=== PATIENT | male | born 1955 | race Caucasian/White ===

== ENCOUNTER 2020-03-04 17:03 | Outpatient (REF) | payer OTHER, SELFPAY | END 2020-03-04 17:04 | disposition home or self-care (01) | LOC: HO.LAB 17:03 | PROVIDERS: PCP Internal Medicine; Visit Provider Internal Medicine | DX: Z20.828 Contact with and (suspected) exposure to other viral communicable diseases (principal) | CPT/HCPCS: C9803; U0003 ==

== ENCOUNTER 2020-04-02 07:58 | Outpatient (REF) | payer OTHER, SELFPAY ==
--- NOTE | 2020-04-02 08:03 | MM_ITS ---
EXAMINATION: BONE DENSITOMETRY CLINICAL INDICATION: Other specified disorders of bone density and structure. COMPARISON: Previous BD dated 10/06/2015 and baseline BD dated 09/12/2013. TECHNIQUE: Using a AFrame Digital DXA System (software version: 13.1) manufactured by [employer], dual-energy x-ray absorptiometry was performed of the lumbar spine and right hip. The images are of good technical quality. Summary results are attached. FINDINGS: AP SPINE L1-L3 (excluding L4): The data of L1-L4 has been changed to exclude the L4 vertebral body, because degenerative changes at this level may cause overestimation of lumbar spine density. Current: BMD 1.215 g/cm2, Z-score -0.3, T-score 0.0, normal, 7.5% increase from previous, 9.0% increase from baseline (<5% change is not significant). Prior: BMD 1.130 g/cm2. Baseline: BMD 1.115 g/cm2. RIGHT FEMUR, NECK: Current: BMD 0.825 g/cm2, Z-score -1.4, T-score -1.9, osteopenia. Prior: BMD 0.871 g/cm2. Baseline: BMD 0.862 g/cm2. RIGHT FEMUR, TOTAL: Current: BMD 0.914 g/cm2, Z-score -1.2, T-score -1.3, osteopenia, 1.3% decrease from previous, 1.9% increase from baseline (<5% change is not significant). Prior: BMD 0.926 g/cm2. Baseline: BMD 0.897 g/cm2. IDENTIFIED RISK FACTORS: History of fracture (adult). HISTORY OF FRACTURE: Femur. MEDICATIONS: None listed. MM/XR DEXA axial skeleton IMPRESSION: 1. DIAGNOSIS: Osteopenia based on the lowest T-score value of -1.9 in the femoral neck applying World Health Organization criteria. 2. 10-YEAR FRACTURE RISK PREDICTION, FRAX: Major osteoporotic fracture (clinical spine, forearm, hip or shoulder) 10.8%. Hip fracture 1.8%. 3. Treatment Recommendations: NOF guidelines recommend consideration for treatment in postmenopausal women and men age 50 and older presenting with the following: -A hip or vertebral (clinical or morphometric) fracture. -T-score less than or equal to -2.5 at the femoral neck or spine after appropriate evaluation to exclude secondary causes. -Low bone mass at the hip or spine and a 10-year fracture probability by FRAX of greater than or equal to 3% for hip fracture or greater than or equal to 20% for major osteoporotic fracture based on the [place] adapted WHO algorithm. 4. Other Recommendations: All treatment decisions require clinical judgment and consideration of individual patient factors, including patient preferences, comorbidities, previous drug use, risk factors not captured in the FRAX model (e.g. frailty, falls, vitamin D deficiency, increased bone turnover, interval significant decline in bone density) and possible under or overestimation of fracture risk by FRAX. Additional medical evaluation for secondary cause of low bone mineral density may be appropriate. FUTURE SCAN RECOMMENDATION: People with diagnosed cases of osteoporosis or at high risk for fracture should have regular bone mineral density tests. For patients eligible for Medicare, routine testing is allowed once every 2 years. The testing frequency can be increased to one year for patients who have rapidly progressing disease, those who are receiving or discontinuing medical therapy to restore bone mass, or have additional risk factors.
== END 2020-04-02 07:59 | disposition home or self-care (01) ==
LOC: HO.MAMMO 07:58
PROVIDERS: PCP Internal Medicine; Visit Provider Internal Medicine
DX: M85.88 Other specified disorders of bone density and structure, other site (principal)
CPT/HCPCS: 77080

== ENCOUNTER 2021-03-15 10:20 | Outpatient (REF) | payer OTHER, SELFPAY ==
[2021-03-15 10:25] LABS: MANUAL DIFF FLAG NO
[2021-03-15 11:23] LABS: Basophils Percent Auto 0.3 % (0-2); Eosinophils Absolute Auto 0.1 X10*3/uL (0.0-0.4); Eosinophils Percent Auto 1.2 % (0-4); Hematocrit 45.6 % (42.0-52.0); Hemoglobin 15.1 g/dl (14.0-18.0); Imm Gran Abs Auto 0.02 X10*3/uL (0.00-0.03); Imm Gran Pct Auto 0.3 % (0.0-0.4); Lymphocytes Absolute Auto 1.7 X10*3/uL (1.2-4.9); Lymphocytes Percent Auto 30.3 % (20-40); Mean Corpuscular HGB Conc 33.1 g/dl (31.0-36.0); Mean Corpuscular Hemoglobin 30.6 pg (27.0-33.0); Mean Corpuscular Volume 92.5 fL (80.0-98.0); Mean Platelet Volume 9.6 fL (9.4-12.4); Monocytes Absolute Auto 0.5 X10*3/uL (0.1-1.2); Monocytes Percent Auto 8.7 % (2-11); Neutrophils Absolute Auto 3.4 x10*3/uL (2.0-8.3); Neutrophils Percent Auto 59.2 % (45-73); Platelet Count 255 X10*3/uL (160-400); Red Blood Count 4.93 X10*6/uL (4.60-5.80); Red Cell Distribution Width 12.4 % (11.0-16.0); White Blood Count 5.7 X10*3/uL (4.8-10.8)
[2021-03-15 11:26] LABS: Appearance Urine CLEAR; Color Urine YELLOW; Glucose Urine UA NEG (NEG); Leukocyte Esterase Urine NEG (NEG); Nitrite Urine NEG (NEG); Specific Gravity - Urine 1.025 (1.005-1.025); Urine Blood NEG (NEG); Urine Ketones NEG (NEG); Urine Protein NEG (NEG-TRACE)
[2021-03-15 11:43] LABS: Alanine Aminotransferase 22 U/L (0-40); Alkaline Phosphatase 75 U/L (39-117); Anion Gap 13 (12-20); Aspartate Amino Transferase 20 U/L (5-37); Bilirubin Total 0.5 mg/dL (0.0-1.0); Blood Urea Nitrogen 22 mg/dL (9-16); Calcium 8.8 mg/dL (8.4-10.2); Carbon Dioxide 26 mmol/L (22-29); Chloride 106 mmol/L (96-108); Cholesterol 189 mg/dL; Estimated Average Glucose 105 mg/dL; Estimated Glomerular Filt Rate > 60; Glucose Fasting 102 mg/dL (60-99); HDL Cholesterol 46 mg/dL; Hemoglobin A1c % 5.3 %; LDL Cholesterol Calculated 125 mg/dl; Potassium 4.4 mmol/L (3.3-5.1); Sodium 141 mmol/L (135-145); Total Protein 6.7 g/dL (6.5-8.0); Triglycerides 93 mg/dL
[2021-03-15 11:54] LABS: Reflex LDLD? No
[2021-03-15 12:05] LABS: PSA,Total (Free>4and<10) 3.38 ng/mL (0.00-4.00)
[2021-03-15 12:42] LABS: Creatinine Urine 110.67 mg/dL; Microalbumin Urine < 5.0 mg/L
== END 2021-03-15 10:21 | disposition home or self-care (01) ==
LOC: HO.LNP 10:20
PROVIDERS: Visit Provider Internal Medicine
DX: Z00.00 Encounter for general adult medical examination without abnormal findings (principal); Z12.5 Encounter for screening for malignant neoplasm of prostate; R97.20 Elevated prostate specific antigen [PSA]; R73.03 Prediabetes; E78.6 Lipoprotein deficiency
CPT/HCPCS: 80053; 80061; 81003; 82043; 83036; 84153; 85025

== ENCOUNTER 2021-05-21 10:21 | Outpatient (REF) | payer OTHER, SELFPAY ==
[2021-05-21 11:19] LABS: Blood Urea Nitrogen 18 mg/dL (9-16)
== END 2021-05-21 10:22 | disposition home or self-care (01) ==
LOC: HO.LNP 10:21
PROVIDERS: Visit Provider Internal Medicine
DX: R79.9 Abnormal finding of blood chemistry, unspecified (principal)
CPT/HCPCS: 84520

== ENCOUNTER 2021-09-16 11:15 | Outpatient (REF) | payer OTHER, SELFPAY ==
[2021-09-16 12:15] LABS: PSA,Total (Free>4and<10) 3.21 ng/mL (0.00-4.00)
== END 2021-09-16 11:16 | disposition home or self-care (01) ==
LOC: HO.LNP 11:15
PROVIDERS: PCP Internal Medicine; Visit Provider Internal Medicine
DX: Z12.5 Encounter for screening for malignant neoplasm of prostate (principal); R97.20 Elevated prostate specific antigen [PSA]
CPT/HCPCS: 84153

== ENCOUNTER 2022-03-22 11:59 | Outpatient (REF) | payer OTHER, SELFPAY ==
[2022-03-22 12:04] LABS: MANUAL DIFF FLAG NO
[2022-03-22 12:23] LABS: Basophils Percent Auto 0.6 % (0-2); Eosinophils Absolute Auto 0.1 X10*3/uL (0.0-0.4); Eosinophils Percent Auto 1.3 % (0-4); Hemoglobin 14.8 g/dl (14.0-18.0); Imm Gran Abs Auto 0.02 X10*3/uL (0.00-0.03); Imm Gran Pct Auto 0.3 % (0.0-0.4); Lymphocytes Absolute Auto 2.2 X10*3/uL (1.2-4.9); Lymphocytes Percent Auto 32.5 % (20-40); Mean Corpuscular HGB Conc 32.9 g/dl (31.0-36.0); Mean Corpuscular Hemoglobin 30.3 pg (27.0-33.0); Mean Platelet Volume 9.9 fL (9.4-12.4); Monocytes Absolute Auto 0.7 X10*3/uL (0.1-1.2); Monocytes Percent Auto 9.7 % (2-11); Neutrophils Absolute Auto 3.8 x10*3/uL (2.0-8.3); Neutrophils Percent Auto 55.6 % (45-73); Platelet Count 298 X10*3/uL (160-400); Red Blood Count 4.89 X10*6/uL (4.60-5.80); White Blood Count 6.8 X10*3/uL (4.8-10.8)
[2022-03-22 12:31] LABS: Estimated Average Glucose 111 mg/dL; Hemoglobin A1c % 5.5 %
[2022-03-22 12:39] LABS: Alanine Aminotransferase 21 U/L (0-40); Albumin Level 4.1 g/dL (3.5-5.0); Alkaline Phosphatase 72 U/L (39-117); Anion Gap 13 (12-20); Aspartate Amino Transferase 18 U/L (5-37); Bilirubin Total 0.4 mg/dL (0.0-1.0); Blood Urea Nitrogen 16 mg/dL (9-16); Carbon Dioxide 28 mmol/L (22-29); Chloride 104 mmol/L (96-108); Cholesterol 209 mg/dL; Estimated Glomerular Filt Rate > 60; Glucose Fasting 93 mg/dL (60-99); HDL Cholesterol 41 mg/dL; LDL Cholesterol Calculated 135 mg/dl; Potassium 4.3 mmol/L (3.3-5.1); Sodium 141 mmol/L (135-145); Total Protein 6.9 g/dL (6.5-8.0); Triglycerides 167 mg/dL
[2022-03-22 12:40] LABS: Appearance Urine Clear; Color Urine Yellow; Glucose Urine UA Negative (Negative); Leukocyte Esterase Urine Negative (Negative); Nitrite Urine Negative (Negative); Urine Blood Negative (Negative); Urine Ketones Negative (Negative); Urine Protein Negative (Neg-Trace)
[2022-03-22 12:44] LABS: Bacteria Urine None Seen (None Seen); Hyaline Casts Urine 0-2 /LPF (0-2); RBC Urine 0-2 /HPF (0-2); Squamous Epithelial Cell Urine 0-2 /HPF (0-2); WBC Urine 0-5 /HPF (0-5)
[2022-03-22 12:52] LABS: Creatinine Urine 146.85 mg/dL; Microalbum/Creatinine Ratio Ur 3.4 ug/mg cr
[2022-03-22 13:04] LABS: PSA,Total (Free>4and<10) 4.05 ng/mL (0.00-4.00)
[2022-03-25 10:31] LABS: Free Prostate Spec Ag 0.6 ng/mL; Percent Free Prostate Spec Ag 14 % (calc) (>25); Prostate Specific Ag Total 4.3 ng/mL (< OR = 4.0)
== END 2022-03-22 12:00 | disposition home or self-care (01) ==
LOC: HO.LNP 11:59
PROVIDERS: Visit Provider Internal Medicine
DX: Z00.00 Encounter for general adult medical examination without abnormal findings (principal); Z12.5 Encounter for screening for malignant neoplasm of prostate; E78.6 Lipoprotein deficiency; R73.03 Prediabetes
CPT/HCPCS: 80053; 80061; 81001; 82043; 83036; 84153; 84154; 85025

== ENCOUNTER 2023-03-27 11:08 | Outpatient (REF) | payer OTHER, SELFPAY ==
[2023-03-27 11:11] LABS: MANUAL DIFF FLAG NO
[2023-03-27 11:31] LABS: Appearance Urine Clear; Color Urine Yellow; Glucose Urine UA Negative (Negative); Leukocyte Esterase Urine Negative (Negative); Nitrite Urine Negative (Negative); PH 5.5 (5.0-9.0); Urine Blood Negative (Negative); Urine Ketones Negative (Negative); Urine Protein Negative (Neg-Trace)
[2023-03-27 11:39] LABS: Basophils Percent Auto 0.7 % (0-2); Eosinophils Absolute Auto 0.1 X10*3/uL (0.0-0.4); Eosinophils Percent Auto 0.8 % (0-4); Hematocrit 46.6 % (42.0-52.0); Hemoglobin 15.3 g/dl (14.0-18.0); Imm Gran Abs Auto 0.02 X10*3/uL (0.00-0.03); Imm Gran Pct Auto 0.3 % (0.0-0.4); Lymphocytes Absolute Auto 1.9 X10*3/uL (1.2-4.9); Lymphocytes Percent Auto 31.2 % (20-40); Mean Corpuscular HGB Conc 32.8 g/dl (31.0-36.0); Mean Corpuscular Hemoglobin 30.4 pg (27.0-33.0); Mean Corpuscular Volume 92.5 fL (80.0-98.0); Monocytes Absolute Auto 0.5 X10*3/uL (0.1-1.2); Monocytes Percent Auto 8.6 % (2-11); Neutrophils Absolute Auto 3.5 x10*3/uL (2.0-8.3); Neutrophils Percent Auto 58.4 % (45-73); Platelet Count 268 X10*3/uL (160-400); Red Blood Count 5.04 X10*6/uL (4.60-5.80); Red Cell Distribution Width 12.1 % (11.0-16.0)
[2023-03-27 11:42] LABS: Estimated Average Glucose 105 mg/dL; Hemoglobin A1c % 5.3 % (<6.0)
[2023-03-27 12:04] LABS: Creatinine Urine 207.72 mg/dL; Microalbum/Creatinine Ratio Ur 3.3 ug/mg cr (<30)
[2023-03-27 12:05] LABS: Alanine Aminotransferase 23 U/L (0-40); Albumin Level 4.1 g/dL (3.5-5.0); Alkaline Phosphatase 68 U/L (39-117); Anion Gap 11 (12-20); Aspartate Amino Transferase 20 U/L (5-37); Bilirubin Total 0.5 mg/dL (0.0-1.0); Blood Urea Nitrogen 13 mg/dL (9-16); Calcium 9.4 mg/dL (8.4-10.2); Carbon Dioxide 27 mmol/L (22-29); Chloride 106 mmol/L (96-108); Cholesterol 201 mg/dL (<200); Estimated Glomerular Filt Rate > 60; Glucose Fasting 103 mg/dL (60-99); HDL Cholesterol 42 mg/dL (>40); LDL Cholesterol Calculated 135 mg/dL (<100); Potassium 4.1 mmol/L (3.3-5.1); Sodium 140 mmol/L (135-145); Total Protein 7.2 g/dL (6.5-8.0); Triglycerides 124 mg/dL (<150)
[2023-03-27 12:22] LABS: PSA,Total (Free>4and<10) 3.21 ng/mL (0.00-4.00)
[2023-03-27 14:03] LABS: Bacteria Urine None Seen (None Seen); Hyaline Casts Urine 0-2 /LPF (0-2); RBC Urine 0-2 /HPF (0-2); Squamous Epithelial Cell Urine 0-2 /HPF (0-2); WBC Urine 0-5 /HPF (0-5)
== END 2023-03-27 11:09 | disposition home or self-care (01) ==
LOC: HO.LNP 11:08
PROVIDERS: Visit Provider Internal Medicine
DX: Z00.00 Encounter for general adult medical examination without abnormal findings (principal); Z12.5 Encounter for screening for malignant neoplasm of prostate; R73.03 Prediabetes; E78.6 Lipoprotein deficiency
CPT/HCPCS: 80053; 80061; 81001; 81003; 82043; 82570; 83036; 84153; 85025

== ENCOUNTER 2023-09-11 13:30 | Outpatient (REF) | payer OTHER, SELFPAY ==
--- NOTE | ~2023-09-11 | US_ITS ---
EXAMINATION: US EXTREMITY, NONVASCULAR CLINICAL INFORMATION: Ramirez's cyst left knee, left popliteal fossa. COMPARISON: None available. TECHNIQUE: Targeted ultrasound images were obtained by the call center operator of the area of concern as indicated by the patient in the left popliteal fossa. Radiologist was not in attendance. Images were later provided for interpretation. FINDINGS: No focal cyst identified in the left popliteal fossa. US/US extremity nonvascular IMPRESSION: No focal cyst identified in the left popliteal fossa.
== END 2023-09-11 13:31 | disposition home or self-care (01) ==
LOC: HO.US 13:30
PROVIDERS: PCP Internal Medicine; Visit Provider Internal Medicine
DX: M71.22 Synovial cyst of popliteal space [Baker], left knee (principal)
CPT/HCPCS: 76882

== ENCOUNTER 2024-04-02 11:46 | Outpatient (REF) | payer OTHER, SELFPAY ==
[2024-04-02 11:48] LABS: MANUAL DIFF FLAG NO
[2024-04-02 12:34] LABS: Basophils Percent Auto 0.5 % (0-2); Eosinophils Absolute Auto 0.3 X10*3/uL (0.0-0.4); Eosinophils Percent Auto 4.3 % (0-4); Hematocrit 48.1 % (42.0-52.0); Hemoglobin 15.7 g/dl (14.0-18.0); Imm Gran Abs Auto 0.02 X10*3/uL (0.00-0.03); Imm Gran Pct Auto 0.3 % (0.0-0.4); Mean Corpuscular HGB Conc 32.6 g/dl (31.0-36.0); Mean Platelet Volume 9.7 fL (9.4-12.4); Monocytes Absolute Auto 0.5 X10*3/uL (0.1-1.2); Neutrophils Absolute Auto 3.2 x10*3/uL (2.0-8.3); Neutrophils Percent Auto 53.9 % (45-73); Platelet Count 272 X10*3/uL (160-400); Red Blood Count 5.23 X10*6/uL (4.60-5.80); Red Cell Distribution Width 12.2 % (11.0-16.0)
[2024-04-02 12:40] LABS: Appearance Urine Clear; Color Urine Yellow; Glucose Urine UA Negative (Negative); Leukocyte Esterase Urine Negative (Negative); Nitrite Urine Negative (Negative); Urine Blood Negative (Negative); Urine Ketones Negative (Negative); Urine Protein Negative (Neg-Trace)
[2024-04-02 12:50] LABS: Bacteria Urine None Seen (None Seen); Hyaline Casts Urine 0-2 /LPF (0-2); RBC Urine 0-2 /HPF (0-2); Squamous Epithelial Cell Urine 0-2 /HPF (0-2); WBC Urine 0-5 /HPF (0-5)
[2024-04-02 12:52] LABS: Alanine Aminotransferase 30 U/L (0-40); Albumin Level 4.2 g/dL (3.5-5.0); Alkaline Phosphatase 74 U/L (39-117); Anion Gap 11 (12-20); Aspartate Amino Transferase 31 U/L (5-37); Bilirubin Total 0.4 mg/dL (0.0-1.0); Blood Urea Nitrogen 15 mg/dL (9-16); Calcium 9.5 mg/dL (8.4-10.2); Carbon Dioxide 29 mmol/L (22-29); Chloride 104 mmol/L (96-108); Cholesterol 203 mg/dL (<200); Estimated Glomerular Filt Rate > 60; Glucose Fasting 102 mg/dL (60-99); HDL Cholesterol 41 mg/dL (>40); LDL Cholesterol Calculated 124 mg/dL (<100); Potassium 4.2 mmol/L (3.3-5.1); Sodium 140 mmol/L (135-145); Triglycerides 192 mg/dL (<150)
[2024-04-02 12:58] LABS: Creatinine Urine 140.27 mg/dL; Microalbumin Urine < 5.0 mg/L
[2024-04-02 13:06] LABS: PSA,Total (Free>4and<10) 3.62 ng/mL (0.00-4.00)
[2024-04-02 21:35] LABS: Estimated Average Glucose 111 mg/dL; Hemoglobin A1C 146.3755 umol/L; Hemoglobin A1c % 5.5 % (<6.0); Total Hemoglobin (HGBA1C) 4034.0217 umol/L
--- OUTSIDE RECORDS SUMMARY | 2024-04-09 13:33 | XMS_ITS ---
Author Organization Misbah Barnett MD Address [address] [place], [place] [phone] Care Team Providers Care Warning Analyst Name Role Phone Misbah Barnett Primary Care Provider ALLERGIES No Known Allergies REASON FOR VISIT annual visit MEDICATIONS Medication SIG (Take, Route, Fr equency, Duration) Notes Start Date End Date Status Omeprazole 20 MG take 1 capsule by [facility] twice a day Orally twice a day for 90 days Active Ibuprofen 800 MG 1 tablet Orally Thre e times a day for 30 day(s) 10/04/2013 Not-Taking SOCIAL HISTORY Tobacco Use: Social History Observation Description Date Details (start date - stop date) Former Smoker NA - NA Sex Assigned At : Social History Observation Description Sex Assigned At Unknown Tobacco Use/Smoking Question Answer Notes Patient is a former smoker How long has it been since y ou last smoked? > 10 years Additional Findings: Tobacco Non-User Fo rmer smoker, currently using no form of tobacco Alcohol Screen Question Answer Notes Did you have a drink contain ing alcohol in the past year? Yes How often did you have a dri nk containing alcohol in the past year? Monthly or less (1 point) How many drinks did you have on a typical day when you were drinking in the past year? 1 or 2 drinks (0 point) How often did you have 6 or more drinks on one occasion in the past year? Never (0 point) Points 1 Interpretation Negative VITAL SIGNS BMI 34.14 kg/m2 04/09/2024 Blood pressure systolic 132 mm Hg 04/09/20 24 Blood pressure diastolic 74 mm Hg 024 Height 67 in 04/09/2024 Weight 218 lbs 04/09/2024 weight is down 10 pounds sin 09-28-23 Encounters Encounter Location Date Provider Diagnosis Misbah Barnett MD [address] [place] [phone] 04/09/2024 Misbah Barnett Prediabetes R73.03 ASSESSMENTS Encounter Date Diagnosis Assessment Notes Treatment Notes Treatment Clinical Notes 04/09/2024 Prediabetes (ICD-10 - R73.03) doing well. has good a1c PLAN OF TREATMENT Treatment Notes Assessment Notes Prediabetes doing well. has good a1c Next Appt Details Provider Name:Misbah de leon, 04/07/2025 07:15:00 AM, [address] [place] [address], [address], [phone], Provider Name:Misbah de leon, 04/14/2025 10:30:00 AM, [address] [place] [address], [place] [address], [place], [place], [phone], Progress Notes * Examination Category Sub-Category Detail Notes General Examination GENERAL APPEARANCE: well dev eloped, well nourished, in no acute distress HEAD: normocephalic, atrau matic EYES: pupils equal, round, reactive to light and accommodation, sclera non- icteric EARS: normal THROAT: clear NECK/THYROID: neck supple, full ra nge of motion, no cervical lymphadenopathy, no bruits HEART: regular rate and rhy thm, S1, S2 normal, no murmurs LUNGS: clear to auscultatio n bilaterally ABDOMEN: soft, nontender, non distended, bowel sounds present, normal, no organomegaly , no masses palpable NEUROLOGIC: nonfocal, motor stre ngth normal upper and lower extremities, sensory exam intact SKIN: warm and dry, no charles picious lesions EXTREMITIES: no clubbing, cyanosi s, or edema MALE GENITOURINARY: circumcised , no pen ile lesions or discharge , no testicular mass , testes descended bilaterally RECTAL EXAM: normal tone, no exte rnal hemorrhoids, no masses palpable, prostate normal, stool guaiac negative ORAL CAVITY: mucosa moist History and Physical Notes * HPI (History of Present Illness) Category Sub-Category Detail Notes Depression Screening PHQ-9 Little inte rest or pleasure in doing things: Not at all Feeling down, depressed, or hopeless: No t at all Trouble falling or staying asleep, or sl eeping too much: Not at all Feeling tired or having little energy: N ot at all Poor appetite or overeating: Not at all Feeling bad about yourself o r that you are a failure, or have let yourself or your family down: Not at all Trouble concentrating on thi ngs, such as reading the newspaper or watching television: Not at all Moving or speaking so slowly that other people could have noticed; or the opposite, being so fidgety or restless that you have been moving around a lot more than usual: Not at all Thoughts that you would be b macy off or of hurting yourself in some way: Not at all Total Score: 0 SDOH Questions SDOH Questions In the past year have you been worried about losing housing?: No In the past year have you or any family members you live with been unable to get any of the following when it was really needed? Check all that apply:: None Fall Risk History Have you had any falls with injury in the past year?: No Have you had two or more falls in the year?: No Communication Needs Communication Needs Does the patient have a hearing impairment: No Does the patient have a vision impairmen t?: Yes ?If yes, what is the vision impairment?: Glasses Does the patient have a cognition impair ment?: No
--- OUTSIDE RECORDS SUMMARY | 2024-04-09 13:33 | XMS_ITS ---
Author Organization Misbah Barnett MD Address [address] [place] [phone] Care Team Providers Care Project Control Analyst Name Role Phone Misbah Barnett Primary Care Provider REASON FOR VISIT HDF IMMUNIZATIONS Vaccine Route Administration Date Status Comme nts Influenza High Dose IM Intramuscular 01/11/2024 Administer ed Encounters Encounter Location Date Provider Diagnosis Misbah Barnett MD [address] [facility] [address] [place] [phone] 01/11/2024 Misbah Barnett Encounter for immunization Z23 ASSESSMENTS Encounter Date Diagnosis Assessment Notes Treatment Notes Treatment Clinical Notes 01/11/2024 Encounter for immunization (ICD-10 - Z23) PLAN OF TREATMENT Next Appt Details Provider Name:Misbah de leon, 04/07/2025 07:15:00 AM, [address] [place] [address], [address], [phone], Provider Name:Misbah de leon, 04/14/2025 10:30:00 AM, [address] [place] [address], [phone],
--- OUTSIDE RECORDS SUMMARY | 2024-04-09 13:33 | XMS_ITS ---
Author Organization Misbah Barnett MD Address [address] [place], [place] [phone] Care Team Providers Care Chest Pain Coordinator Name Role Phone Misbah Barnett Primary Care Provider [phone] RESULTS Component Value Reference Range Notes Complete Blood Count Auto Di ff Reviewed date:04/02/2024 12:45:26 PM Interpretation: Performing Lab:[facility], [address] [place] [phone] Notes/Report: White Blood Count 6.0 4.8-10.8 X10*3/uL Red Blood Count 5.23 4.60-5.80 X10*6/uL Hemoglobin 15.7 14.0-18.0 g/dl Hematocrit 48.1 42.0-52.0 % Mean Corpuscular Volume 92.0 80.0-98.0 fL Mean Corpuscular Hemoglobin 30.0 27.0-33.0 pg Mean Corpuscular HGB Conc 32.6 31.0-36.0 g/dl Red Cell Distribution Width 12.2 11.0-16.0 % Platelet Count 272 160-400 X10*3/uL Mean Platelet Volume 9.7 9.4-12.4 fL Neutrophils Percent Auto 53.9 45-73 % Imm Gran Pct Auto 0.3 0.0-0.4 % Lymphocytes Percent Auto 33.0 20-40 % Monocytes Percent Auto 8.0 2-11 % Eosinophils Percent Auto 4.3 0-4 % Basophils Percent Auto 0.5 0-2 % NRBC Pct Auto 0.0 0.0-0.2 /100WBC Neutrophils Absolute Auto 3.2 2.0-8.3 x10*3/u L Imm Gran Abs Auto 0.02 0.00-0.03 X10*3/uL Lymphocytes Absolute Auto 2.0 1.2-4.9 X10*3/u L Monocytes Absolute Auto 0.5 0.1-1.2 X10*3/uL Eosinophils Absolute Auto 0.3 0.0-0.4 X10*3/u L Basophils Absolute Auto 0.0 0.0-0.2 X10*3/uL NRBC Abs Auto 0.000 0.0-0.012 X10*3/uL Comprehensive [place]. Panel Fa st Reviewed date:04/02/2024 05:12:00 PM Interpretation: Performing Lab:[facility], [address] [place] [phone] Notes/Report: Sodium 140 135-145 mmol/L Potassium 4.2 3.3-5.1 mmol/L Chloride 104 96-108 mmol/L Carbon Dioxide 29 22-29 mmol/L Anion Gap 11 12-20 Blood Urea Nitrogen 15 9-16 mg/dL Creatinine 0.82 0.5-1.4 mg/dL Estimated Glomerular Filt Rate > 60 Chronic Kidney Disease: Estimated GFR < 60 mL/min/1.73m2 Severe Kidney Disease: Estimated GFR < 15 mL/min/1.73m2 Glucose Fasting 102 60-99 mg/dL A fasting glucose from 100-125 mg/dl is considered impaired (pre-diabetes). Calcium 9.5 8.4-10.2 mg/dL Bilirubin Total 0.4 0.0-1.0 mg/dL Aspartate Amino Transferase 31 5-37 U/L Alanine Aminotransferase 30 0-40 U/L Total Protein 7.0 6.5-8.0 g/dL Albumin Level 4.2 3.5-5.0 g/dL Alkaline Phosphatase 74 39-117 U/L Lipid Panel Reviewed date:04/02/2024 04:50:50 PM Interpretation: Performing Lab:[facility], [address] [place] [phone] Notes/Report: Triglycerides 192 <150 mg/dL Desirable Triglyceride: less than 150 mg/dL Borderline High Triglyceride 150-199 mg/dL High Triglyceride: 200-499 mg/dL Very High Triglyceride: greater than or equal to 5OO mg/dL Cholesterol 203 <200 mg/dL Desirable Cholesterol: less than 200 mg/dL Borderline High Cholesterol: 200-239 mg/dL High Cholesterol: greater than 239 mg/dL LDL Cholesterol Calculated 124 <100 mg/dL Desirable LDL: less than 100 mg/dL Near Optimal/Above Optimal LDL: 110-129 mg/dL Borderline High LDL: 130-159 mg/dL High LDL: 160-189 mg/dL Very High LDL: greater than or equal to 190 mg/dL HDL Cholesterol 41 >40 mg/dL Desirable HDL: greater than 40 mg/dL Note: This HDL assay may give artificially low results in patients with liver disease. PSA,Total (Free>4and<10) Reviewed date:04/02/2024 05:14:44 PM Interpretation: Performing Lab:[facility], [address] [place] [phone] Notes/Report: PSA,Total (Free>4and<10) 3.62 0.00-4.00 ng/mL A Free PSA was not performed: The percentage of Free PSA can be used to enhance the differentiation of prostate cancer from benign prostatic disease in subjects whose PSA levels are between 4.0 and 10.0 ng/mL. For subjects whose PSA levels are below 4.0 or above 10.0 ng/mL, the risk of prostate cancer is determined on the basis of the PSA alone. Therefore the % Free PSA is recommended only for those subjects whose PSA levels are between 4.0 and 10.0 ng/mL. PSA methodology: Lazaro Alinity i Chemiluminescent Microparticle Immunoassay (CMIA) Microalbumin, Random Reviewed date:04/02/2024 05:15:07 PM Interpretation: Performing Lab:[facility], [address] [place] [phone] Notes/Report: Creatinine Urine 140.27 Microalbumin Urine < 5.0 Microalbum/Creatinine Ratio Ur TNP <30 ug/mg cr Unable to calculate albumin/creatinine ratio due to low microalbumin or creatinine result. Hemoglobin A1c Reviewed date:04/03/2024 07:19:13 PM Interpretation: Performing Lab:[facility], [address] [place] [phone] Notes/Report: Hemoglobin A1c % 5.5 <6.0 % Hemoglobin A1C Reference Range Adults: 4.8 - 6.0 % Non diabetic: < 6.0 % Goal: < 7.0 % Additional Action Suggested: > 8.0 % Note: Hemoglobin A1c results are invalid for patients with abnormal amounts of HbF. Blood transfusions may impact the HbA1c concentration in the patient sample. Estimated Average Glucose 111 eAG = Estimated average glucose which is %A1C expressed as average glucose, using the formula of the H0Q-Brifufj Average Glucose study (ADAG), Diabetes Care, Vol.31,#8, Nov. 2007 UA ClnCatch+Micro w/rflx Cul t Reviewed date:04/02/2024 05:15:47 PM Interpretation: Performing Lab:[facility], [address] [place] [phone] Notes/Report: Urine, Clean Catch Color Urine Yellow Appearance Urine Clear PH 7.0 5.0-9.0 Glucose Urine UA Negative Negative mg/dL Urine Blood Negative Negative Specific [place] - Urine 1.020 1.005-1.025 Urine Protein Negative Neg-Trace mg/dL Urine Ketones Negative Negative mg/dL Nitrite Urine Negative Negative Leukocyte Esterase Urine Negative Negative RBC Urine 0-2 0-2 /HPF WBC Urine 0-5 0-5 /HPF Squamous Epithelial Cell Urine 0-2 0-2 /HPF Bacteria Urine None Seen None Seen Hyaline Casts Urine 0-2 0-2 /LPF REASON FOR VISIT yearly fasting labs Encounters Encounter Location Date Provider Diagnosis Misbah Barnett MD [address] [facility] [address] [place], [place] [phone] 04/02/2024 Misbah Barnett Blood tests for routine general physical examination Z00.00 ; Prediabetes R73.03 and Low HDL (under 40) E78.6 ASSESSMENTS Encounter Date Diagnosis Assessment Notes Treatment Notes Treatment Clinical Notes 04/02/2024 Blood tests for routine general physical examination (ICD-10 - Z00.00) 04/02/2024 Prediabetes (ICD-10 - R73.03) 04/02/2024 Low HDL (under 40) (ICD-10 - E78.6) PLAN OF TREATMENT Next Appt Details Provider Name:Misbah de leon, 04/07/2025 07:15:00 AM, [address] [place] [address], [address], [place], [phone], Provider Name:Misbah de leon, 04/14/2025 10:30:00 AM, [address] [place] [address], [address], [place], [phone],
--- OUTSIDE RECORDS SUMMARY | 2024-04-09 13:33 | XMS_ITS | Data Portability ---
Author Organization LORE [facility] [address] Address [address] [place] [address] Assessment No assessment recorded. Plan of Treatment Reminders Order Date Submit Date Provider Last Modified By Organization Details Last Modified Time Details Appointments None recorded. Lab rapid flu (A+B) 2021 [email or web address] 1 [facility], [address] [place] [address], [phone], 12:41:46 Referral None recorded. Procedures None recorded. Surgeries None recorded. Imaging None recorded. Medication Orders fluticasone propionate 50 mcg/actuati on nasal spray,suspe nsion 2021 [facility][id number], [address] [place], [phone], 12:41:47 Patient TargetsNo targets recorded. Patient Instructions Encounter Date Encounter Id Patient Instructions Last Modified By Organization Details Last Modified Time 04/21/2022 [id number] viral respirator y infection: care instructions [email or web address] Not available 04/21/2022 12:41:46 Reason for Referral None Reported. Results Created Date Observation Date Name Description Value Unit Range Abnormal Flag Note LastModifiedBy Organization Detail LastModifiedTime 04/21/2004/21/2022 rapid flu (A+B) Unknown Analyte Normal = Negati ve Not Available [facility] [address], [phone], 04/21/2022 11:55:30 04/21/2004/21/2022 rapid flu (A+B) Unknown Analyte Normal = Negati ve Not Available [facility] [address] [place] [address] [place], [phone], 04/21/2022 11:55:30 04/21/2004/21/2022 rapid flu (A+B) Unknown Analyte negati ve Not Available [address]christopher figueroa [address] [place], [phone], 04/21/2022 11:55:30 04/21/2004/21/2022 rapid flu (A+B) Unknown Analyte negati ve Not Available christopher figueroa [address] [place], [phone], 04/21/2022 11:55:30 Result Notes None recorded. Problems Name Problem SNOMED Code Status Onset Date Resolution Date Notes Provider Name and Address Organization Details Recorded Time Acid reflux [id number] Active 022 YESSICA roblero PA - [facility] 04/21/2022 11:48:36 Problem Notes None recorded. Procedures Surgical History Date Name Laterality Status Provider Name and Address Organization Details Recorded Time procedure on femur completed YESSICA ANGUIANO PA - [facility] 04/21/2022 11:49:15 Imaging Results None recorded. Procedure Notes None recorded. Medical Equipment None Reported. Allergies No known drug allergies Medications Name Sig Start Date Stop Date Status Note LastModified by Organization Details LastModified Time fluticasone propionate 50 mcg/actuatio n nasal spray,suspen obdulia [place] 1 spray twice a day by intranasal route as directed. 2021 active Not Available Not Available Not Avai lable omeprazole active Not Available Not Av ailable Not Available Vitals Date Recorded Body height Body mass index (BMI) Body weight Body temperature Respiratory rate Heart rate Oxygen saturation Oxygen saturation in Arterial blood by Pulse oximetry Systolic blood pressure Diastolic blood pressure Provider Name and Address Organization Details Last Updated DateTime 172.72 cm 33.5 kg/m2 19402.3 2 g 97.8 [degF] 18 /min 62 /min 99 % 99 % 143 mm[Hg] 91 mm[Hg] YESSICA Vasquez PA - [facility] 11:51:55 Social History Question Answer Notes LastModified by Organizat ion Details LastModified Time Tobacco Smoking Status Former Smoker YESSICA robleroLORE - [facility] 04/21/2022 11:48:51 What Is Your Level Of Alcohol Consumption? Occasional Information not available 04/21/2022 What Is Your Water Source? City Information not available 04/21/2022 What Is Your Heat Source? Gas Information not available 04/21/2022 Have You Had Direct Contact, Or Contact During Intimacy, With Monkeypox Rash, Scabs, Or Body Fluids From A Person With Monkeypox? No Information not available 04/21/2022 Do You Use Any Illicit Or Recreational Drugs? No Information not available 04/21/2022 Have You Recently Traveled Abroad? No Information not available 04/21/2022 Do You Or Have You Ever Used Any Other Forms Of Tobacco Or Nicotine? No Information not available 04/21/2022 Sex: Unknown Functional Status None recorded. Mental Status None recorded. Family History Relationship Description Onset Age of this Age Resolved Age Notes LastModified by Organization Details LastModified Time Father No current problems or disability Not available 11:48:40 Mother No current problems or disability Not available 11:48:40 Medical History No medical history recorded. Past Encounters Encounter ID Performer Location Encounter Start Date Encounter Closed Date Diagnosis/Indication Diagnosis SNOMED-CT Code Diagnosis ICD10 Code [id number] [address] [place] [address] 2017 18:49:06 2017 19:36:21 [address] [place] [phone] 07/23/2017 14:43:35 07/23/2017 15:22:27 [id number] [address] [place] [id number] 07/12/2018 17:35:53 07/12/2018 18:34:26 [id number] HINA FRANKLIN MD [address] [phone] 04/21/2022 09:17:49 04/21/2022 12:42:58 Acute upper respiratory infection 27535180 J06.9 Health Concerns Section Related Observation LastModified by Organization Detai ls LastModified Time None Recorded Concern Status LastModified by Organization Details LastModified Time None Recorded Advance Directives Directive None Recorded Payers Encounter Date Sequence Insurance Name Policy Number Policy Laura Covered Member ID Laura Member ID Guarantor Name 2017 1 [facility] INDEMNITY PLAN - [employer] [id number] Zoey P Bennie [id number] Brenden Bennie 07/23/2017 1 [facility] INDEMNITY PLAN - [employer] [id number] Zoey P Bennie [id number] Brenden Bennie 07/12/2018 1 [facility] INDEMNITY PLAN - [employer] [id number] Zoey P Bennie [id number] Brenden Bennie 04/21/2022 1 [employer] - [employer] (PPO) [id number] Zoey P Bennie [id number] Brenden Mckeonay Notes Date Note Type Note Provider Name and Address Organization Details Recorded Time 04/21/2022 text/html Sinus Complaints UCReported bypatient.Locatio n:left side Associated Symptoms:no fever; no difficulty breathing; no nausea or vomiting; no sore throat; no cough; no dizziness;Post nasal drip Quality:minimal discomfort Severity:mild started 5-6d ago with L ear pressure/pain, then developed some post-nasal drip and today woke up with pain above L eye. Hasn't taken anything. Concerned about possible sinus infection HINA FRANKLIN MD [address] [place], [address], PA - [facility] 04/21/2022 12:43:18
--- OUTSIDE RECORDS SUMMARY | 2024-04-09 13:33 | XMS_ITS | Patient Health Record ---
Author Organization Misbah Barnett MD Address [address] [place], [place] [id number] Care Team Providers Care Green House Manager Name Role Phone Misbah Barnett Primary Care Provider [phone] ALLERGIES No Known Allergies RESULTS Component Value Reference Range Notes Hemoglobin A1c Reviewed date:08/31/2023 11:16:42 AM Interpretation: Performing Lab: Notes/Report: Value Hemoglobin A1c 5.8 Occult Blood, Stool, Guaiac Reviewed date:05/11/2023 09:54:53 AM Interpretation: Performing Lab: Notes/Report: Occult Blood, Stool, Guaiac Neg x2 Glucose, finger stick Reviewed date:08/31/2023 09:44:03 AM Interpretation: Performing Lab: Notes/Report: Value 116 US extremity nonvascular Reviewed date:09/12/2023 03:05:10 PM Interpretation: Performing Lab: Notes/Report: [facility] [address] [place] [address] Ultrasound Report Signed Patient: Brenden Avery MR#: [id number] : 1955 Acct:[id number] Age/Sex: 68 / M ADM Date: 09/11/23 Loc: HO.US Attending Dr: Misbah Barnett MD Ordering Physician: Misbah Barnett MD Date of Service: 09/11/23 Procedure(s): US extremity nonvascular Accession Number(s): [id number] cc: Misbah Barnett MD EXAMINATION: US EXTREMITY, NONVASCULAR CLINICAL INFORMATION: Ramirez's cyst left knee, left popliteal fossa. COMPARISON: None available. TECHNIQUE: Targeted ultrasound images were obtained by the group cio of the area of concern as indicated by the patient in the left popliteal fossa. Radiologist was not in attendance. Images were later provided for interpretation. FINDINGS: No focal cyst identified in the left popliteal fossa. US/US extremity nonvascular IMPRESSION: No focal cyst identified in the left popliteal fossa. Dictated By: Marifer Chowdary MD Signed By: <Electronically signed by Marifer Chowdary MD in OV> 09/12/23 1350 DD/ 1408 TD/TT: Soil Science Professor: Complete Blood Count Auto Di ff Reviewed date:04/02/2024 12:45:26 PM Interpretation: Performing Lab:[facility], [address] [place] [phone] Notes/Report: White Blood Count 6.0 4.8-10.8 X10*3/uL [...] NRBC Abs Auto 0.000 0.0-0.012 X10*3/uL Comprehensive [place]. Panel Fa st Reviewed date:04/02/2024 05:12:00 PM Interpretation: Performing Lab:[facility], [address] [place] [phone] Notes/Report: Sodium 140 135-145 mmol/L Potassium 4.2 [...] Panel Reviewed date:04/02/2024 04:50:50 PM Interpretation: Performing Lab:[facility], [address] [place] [phone] Notes/Report: Triglycerides 192 <150 mg/dL Desirable Triglyceride: [...] (Free>4and<10) Reviewed date:04/02/2024 05:14:44 PM Interpretation: Performing Lab:[address] [phone] Notes/Report: PSA,Total (Free>4and<10) 3.62 0.00-4.00 ng/mL A [...] Random Reviewed date:04/02/2024 05:15:07 PM Interpretation: Performing Lab:[facility], [address] [place] [phone] Notes/Report: Creatinine Urine 140.27 Microalbumin Urine < 5.0 Microalbum/Creatinine Ratio Ur TNP <30 ug/mg cr Unable to calculate albumin/creatinine ratio due to low microalbumin or creatinine result. Hemoglobin A1c Reviewed date:04/03/2024 07:19:13 PM Interpretation: Performing Lab:[facility], [address] [place] [phone] Notes/Report: Hemoglobin A1c % 5.5 <6.0 % [...] average glucose, using the formula of the P8E-Jrnzxwj Average Glucose study (ADAG), Diabetes Care, Vol.31,#8, Nov. 2007 UA ClnCatch+Micro w/rflx Cul t Reviewed date:04/02/2024 05:15:47 PM Interpretation: Performing Lab:[facility], [address] [place] [phone] Notes/Report: Urine, Clean Catch Color Urine Yellow Appearance Urine Clear PH 7.0 5.0-9.0 Glucose Urine UA Negative Negative mg/dL Urine Blood Negative Negative Specific [place] - Urine 1.020 1.005-1.025 Urine Protein Negative Neg-Trace mg/dL Urine Ketones Negative Negative mg/dL Nitrite Urine Negative Negative Leukocyte Esterase Urine Negative Negative RBC Urine 0-2 0-2 /HPF WBC Urine 0-5 0-5 /HPF Squamous Epithelial Cell Urine 0-2 0-2 /HPF Bacteria Urine None Seen None Seen Hyaline Casts Urine 0-2 0-2 /LPF REASON FOR REFERRAL No Information MEDICATIONS Medication SIG (Take, Route, Fr equency, Duration) Notes Start Date End Date Status Omeprazole 20 MG take 1 capsule by [facility] twice a day Orally twice a day for 90 days Active Ibuprofen 800 MG 1 tablet Orally Thre e times a day for 30 day(s) 10/04/2013 Not-Taking IMMUNIZATIONS Vaccine Route Administration Date Status Comme nts Flu Vaccine IM Intramuscular 12/21/2010 Administered Flu Vaccine IM Intramuscular 01/01/2013 Administered Shingles IM Intramuscular 01/01/2013 Administered TDaP IM Intramuscular 12/29/2014 Administered Flu Vaccine IM Intramuscular 01/16/2015 Administered Flu Vaccine IM Intramuscular 01/14/2016 Administered [facility] Fluarix Quadrivalent IM Intramuscular 01/30/2017 Administe red Fluarix Quadrivalent IM Intramuscular 02/13/2018 Administe red Fluarix Quadrivalent IM Intramuscular 02/18/2019 Administe red Fluarix Quadrivalent IM Intramuscular 01/17/2020 Administe red PPSV23 (Pnemovax) IM Intramuscular 02/24/2020 Administered Tetanus Unknown 12/29/2014 Administered Covid Vaccine Unknown 07/18/2020 Administered Pfizer Covid Vaccine Unknown 08/08/2020 Administered Pfizer Fluarix Quadrivalent IM Intramuscular 01/21/2021 Administe red Fluarix Quadrivalent IM Intramuscular 01/21/2022 Administe red Influenza High Dose IM Intramuscular 01/06/2023 Administer ed Influenza High Dose IM Intramuscular 01/11/2024 Administer ed PPSV23 (Pnemovax) Unknown 07/27/2018 Refused Tetanus Unknown 12/29/2014 Pending SOCIAL HISTORY Tobacco Use: Social History Observation [...] Never (0 point) Points 1 Interpretation Negative PROBLEMS Problem Type ICD Code Onset Dates Problem Status W/U Status Risk SNOMED Code Notes Problem Acute diverticulitis (K57.92) Active confirmed 341203257 Problem Diverticulitis (K57.92) Active confirmed 196861808 Problem Diverticulitis of large intestine without perforation or abscess without bleeding (K57.32) Active confirmed 4632469 Problem Other male erectile dysfunction (N52.8) Active confirmed 032374192 Problem Gastroesophageal reflux disease without esophagitis (K21.9) Active confirmed 397049409 Problem Psoriasis (L40.9) Active confirmed 9014 002 Problem Low HDL (under 40) (E78.6) Active confirmed 692005173 Problem Colon cancer screening (Z12.11) Active confirmed 344220267 Problem Cervical neuropathy (G54.2) Active confirmed 4981014495787 Problem Diverticulitis of large intestine with perforation without bleeding (K57.20) Active confirmed 9304865 Problem Prediabetes (R73.03) Active confirmed 746558789 Problem Bilateral tinnitus (H93.13) Active confirmed 5416897381534 Problem Osteopenia of femoral neck (M85.859) Active confirmed 856590075 Problem Meralgia paresthetica of right side (G57.11) Active confirmed 76704559 Problem Arthritis of both knees (M17.0) Active confirmed 9437677205057614 VITAL SIGNS Blood pressure diastolic 74 mm Hg 04/09/2024 maribell ght is down 10 pounds since 09-28-23 Height 67 in 04/09/2024 weight is down 10 pounds since 09-28-23 Blood pressure systolic 132 mm Hg 04/09/2024 weig ht is down 10 pounds since 09-28-23 Weight 218 lbs 04/09/2024 weight is down 10 pounds since 09-28-23 BMI 34.14 kg/m2 04/09/2024 weight is down 10 pounds since 09-28-23 Encounters Encounter Location Date Provider Diagnosis Misbah Barnett MD [address] [place] [id number] 04/09/2024 Misbah Barnett Prediabetes R73.03 Misbah Barnett MD [address] [place] [id number] 04/02/2024 Misbah Barnett Blood tests for routine general physical examination Z00.00 ; Prediabetes R73.03 and Low HDL (under 40) E78.6 Misbah Barnett MD [address] [place] [id number] 01/11/2024 Misbah Barnett Encounter for immunization Z23 Misbah Barnett MD [address] [place] [id number] 06/02/2023 Misbah Barnett Gross hematuria R31. 0 ; Guaiac positive stools R19.5 and Labile hypertension R09.89 Misbah Barnett MD [address] [place] [id number] 08/31/2023 Misbah Barnett Prediabetes R73.03 and Ramirez's cyst, left M71.22 Misbah Barnett MD [address] [place], [place] [id number] 09/28/2023 Misbah Barnett Arthritis of both knees M17.0 Misbah Barnett MD [address] [place] [address] Drive [address] [place], [place] [id number] 04/17/2023 Misbah Barnett Colon cancer screening Z12.11 ASSESSMENTS Encounter Date Diagnosis Assessment Notes Treatment Notes Treatment Clinical Notes 04/09/2024 Prediabetes (ICD-10 - R73.03) doing well. has good a1c 04/02/2024 Prediabetes (ICD-10 - R73.03) 04/02/2024 Blood tests for routine general physical examination (ICD-10 - Z00.00) 01/11/2024 Encounter for immunization (ICD-10 - Z23) 06/02/2023 Guaiac positive stools (ICD-10 - R19.5) repeat cards negative 06/02/2023 Gross hematuria (ICD-10 - R31.0) need last notes from dr claros urology/ request sent for records 08/31/2023 Prediabetes (ICD-10 - R73.03) stable, no need for mdication at this time, will continue to monitor 08/31/2023 Ramirez's cyst, left (ICD-10 - M71.22) order faxed to [facility] CS dept, pending diagnostic testing/ REFAXED ORDER AGAIN 09/28/2023 Arthritis of both knees (ICD-10 - M17.0) is doing well after injections in both knee 04/02/2024 Low HDL (under 40) (ICD-10 - E78.6) 06/02/2023 Labile hypertension (ICD-10 - R09.89) will check in 3 months to determine if treatment needed 04/17/2023 Colon cancer screening (ICD-10 - Z12.11) PLAN OF TREATMENT Pending Test Test Name Order Date US SOFT TISSUE 08/31/2023 Next Appt Details Provider Name:Misbah de leon, 04/07/2025 07:15:00 AM, [address] [place] [address], [address] [facility], [place], [place], [phone], Provider Name:Misbah de leon, 04/14/2025 10:30:00 AM, [address] [place] [address], [address], [place], [place], [phone], Insurance Providers Payer Name Payer Address Payer Phone Subscriber Number Group Number Insured Name Patient Relationship to Insured Coverage Start Date Coverage End Date [facility] [place] [address] [place] [phone] [id number] Brenden Avery Self - patient is the insured 5 MEDICAL (GENERAL) HISTORY Medical History History ICD Code hyperplastic polyp 2008 due in 10 years; colonoscopy done 06/01/[address] Reis due in 10 years needs bone density 2015 Endoscopy 02/19/[address] Reis Hx multilevel degenerative disc disease hematuria eval 2022 Surgical History Surgery Date(Month/Year) Rt Knee Partial Medial Menisectomy by by Dr. Isidro Tyler 08/2016
== END 2024-04-02 11:47 | disposition home or self-care (01) ==
LOC: HO.LNP 11:46
PROVIDERS: Visit Provider Internal Medicine
DX: Z00.00 Encounter for general adult medical examination without abnormal findings (principal); R73.03 Prediabetes; E78.6 Lipoprotein deficiency; Z12.5 Encounter for screening for malignant neoplasm of prostate
CPT/HCPCS: 80053; 80061; 81001; 82043; 82570; 83036; 84153; 85025

== ENCOUNTER 2024-09-23 04:54 | Inpatient (IN) | payer OTHER, SELFPAY ==
[2024-09-23] VITALS (7 sets, daily range): BP systolic 114–138; BP diastolic 51–91; PULSE 79–112; RESP 12–18; TEMP 36.8–37.6; O2SAT 96–97; BMI 35.2
--- NOTE | ~2024-09-23 | CT_ITS ---
CLINICAL HISTORY: LLQ pain, rigors, R O diverticulitis, perforation CT abdomen and pelvis with contrast Comparison: CT - CT ABDOMEN PELVIS W IV CON - 09/23/24 06:05 EDT Findings: The lung bases are clear. Unremarkable gallbladder and solid organs. Nonobstructing 2 mm right lower pole stone. Additional punctate right upper pole stone. No bowel obstruction, pneumoperitoneum, or pneumatosis. Diverticulosis. There is inflammation of a diverticulum along the descending colon image 49 series 3 consistent with acute diverticulitis. No fluid collections. Fluid throughout the colon often seen in the setting of diarrheal illness or cathartic use. Pelvic contents unremarkable. Normal appendix. No acute osseous findings. IMPRESSION: Acute diverticulitis of the sigmoid colon without fluid collection or obstruction. Nonobstructing right renal stones. This document has been electronically signed by: Carlene Morales MD on 09/23/2024 06:45:36
--- NOTE | 2024-09-23 05:11 | ECG_ITS ---
Test Reason : abd pain/tachy Blood Pressure : */* mmHG Vent. Rate : 99 BPM Atrial Rate : 99 BPM P-R Int : 144 ms QRS Dur : 98 ms QT Int : 338 ms P-R-T Axes : 44 -20 26 degrees QTcB Int : 433 ms Normal sinus rhythm Normal ECG No previous ECGs available Referred By: Generic ED Physician Electronically Signed By: Jarrell Ramey
[2024-09-23 05:26] LABS: MANUAL DIFF FLAG NO
[2024-09-23 05:27] LABS: Basophils Percent Auto 0.3 % (0-2); Eosinophils Percent Auto 0.2 % (0-4); Hematocrit 44.4 % (42.0-52.0); Hemoglobin 15.2 g/dl (14.0-18.0); Imm Gran Abs Auto 0.06 X10*3/uL (0.00-0.03); Imm Gran Pct Auto 0.4 % (0.0-0.4); Lymphocytes Percent Auto 6.9 % (20-40); Mean Corpuscular HGB Conc 34.2 g/dl (31.0-36.0); Mean Corpuscular Volume 90.6 fL (80.0-98.0); Mean Platelet Volume 8.9 fL (9.4-12.4); Monocytes Absolute Auto 0.7 X10*3/uL (0.1-1.2); Monocytes Percent Auto 4.9 % (2-11); Neutrophils Absolute Auto 12.1 x10*3/uL (2.0-8.3); Neutrophils Percent Auto 87.3 % (45-73); Platelet Count 269 X10*3/uL (160-400); Red Cell Distribution Width 11.8 % (11.0-16.0); White Blood Count 13.8 X10*3/uL (4.8-10.8)
--- NOTE | 2024-09-23 05:38 | ED_ITS ---
HPI - Abdominal Pain General Chief Complaint: Abdominal Pain Stated Complaint: Abdominal Pain Time Seen by Provider: 09/23/24 05:37 Source: patient and family () Mode of arrival: ambulatory Limitations: no limitations History of Present Illness ED Provider: Dr. David Perez HPI narrative: 69-year-old male with a history of hiatal hernia, kidney stones, diverticulitis who presents emergency department for evaluation of left flank/left lower quadrant pain x3 days and acute rigors starting last name. The pain came on gradually and felt similar to his diverticulitis pain that he has had 2 times in the past. His PCP prescribed Augmentin which she has been taking over the last 3 days. He developed diarrhea which he describes as loose, watery stool with no blood, 2-3 episodes per day. He had diverticulitis 2 times in the past and was treated with Augmentin which gave him diarrhea. With both previous episodes of diverticulitis, he had to be admitted to the hospital for IV antibiotics. Last night, he developed shaking chills, headache and body aches. He was concerned about these symptoms so he came to the emergency department for evaluation. He is currently having left-sided sharp pain which resolves if he stays still but is worse with movement or bending. The pain is also worse if he pushes on his left side. Patient had associated nausea but no vomiting. Related Data Home Medications ?Medication ?Instructions ?Recorded ?Confirmed amoxicillin 875 mg-potassium 1 tab PO Q12H 09/23/24 clavulanate 125 mg tablet omeprazole 20 mg capsule,delayed 20 mg PO BID 09/23/24 release Allergies Allergy/AdvReac Type Severity Reaction Status Date / Time No Known Allergies Allergy Verified 09/23/24 05:05 [No Known Allergies*] Review of Systems Review of Systems Yes all other systems are reviewed and are negative [facility] Past Medical History [facility] Narrative: Social history: He is in his Letitia is here in the emergency department with him. He denies tobacco use. He states he occasionally drinks alcohol. He denies drug use. Social History Social History Advance Directives: No Do you have a plan to hurt others: No Plan Physical Exam ED Vital Signs: Vital Signs - 24 hr 09/23/24 05:00 Temperature 99.7 F Pulse Rate 112 H Respiratory Rate 18 Blood Pressure 126/91 H Pulse Oximetry 97 Oxygen Delivery Method Room Air BMI result Body Mass Index 35.2 Vital signs revealed tachycardia with a heart rate of 112 otherwise unremarkable. Exam: General: Awake, alert in no distress Head: Normocephalic, atraumatic EENT: PERRL, Lids normal, sclera normal, conjunctiva normal, nose normal , ears normal, throat without erythema or exudates Neck: Supple, no adenopathy Lung: breath sounds symmetric, no wheezing, rales or rhonchi Chest: symmetric movement, nontender Heart: regular rate and rhythm, normal S1, S2 no murmurs or rubs Abdomen: soft, moderate left lower quadrant tenderness, nondistended, normal bowel sounds, no rebound Back: no vertebral tenderness, no CVAT Extremities: no deformities, moves all extremities symmetrically Neuro: Awake, alert, oriented, normal speech, cranial nerves intact, moves all extremities symmetrically Psych: Pleasant, cooperative Medical Decision Making Medical Decision Making MDM Narrative: 69-year-old male with a history of hiatal hernia, kidney stones, diverticulitis who presents emergency department for evaluation of left flank/left lower quadrant pain x3 days and acute rigors starting last night. The pain came on gradually and felt similar to his diverticulitis pain that he has had 2 times in the past. His PCP prescribed Augmentin which she has been taking over the last 3 days. He developed diarrhea which he describes as loose, watery stool with no blood, 2-3 episodes per day. He had diverticulitis 2 times in the past and was treated with Augmentin which gave him diarrhea. With both previous episodes of diverticulitis, he had to be admitted to the hospital for IV antibiotics. Last night, he developed shaking chills, headache and body aches. He was concerned about these symptoms so he came to the emergency department for evaluation. He is currently having left-sided sharp pain which resolves if he stays still but is worse with movement or bending. The pain is also worse if he pushes on his left side. Patient had associated nausea but no vomiting. Vital signs reveal tachycardia otherwise were unremarkable. Abdominal exam revealed moderate left lower quadrant tenderness with no rebound. Differential diagnosis: ?Includes but is not limited to pancreatitis, diverticulitis, perforation, abscess, anemia, electrolyte abnormalities Course: 06:00 My independent interpretation of the patient's laboratory evaluation is as follows: WBC elevated 13,800 with a left shift 87 neutrophils. H&H was normal 15.2 and 44.4 with a normal platelet count of 269,000. BUN was elevated 17. Glucose elevated 119. Troponin was below detectable limits. Patient's 12 EKG was unremarkable. 07:[address] scan of the abdomen pelvis with IV contrast is consistent with acute diverticulitis. Patient did have fluid in his colon which is consistent with his description of diarrhea, most likely caused by Augmentin however I will send stool for C diff and GI panel. Given the fact that the patient had rigors, he is most likely bacteremic and will require IV antibiotics. Therefore, I did discuss the patient's presentation with the covering surgeon, Dr. Vasquez and the patient will be admitted to his service for further treatment. Admission/Observation Consideration of admission/observation: Escalation of care including admission/observation considered (Yes) Consult Healthcare Provider Management of the patient was discussed with: Labor Supervisor (General surgeon, Dr. Vasquez) Lab Data MDM Lab Attestation statement: I reviewed the patient's lab results. 09/23/24 05:20 09/23/24 05:20 Labs: Lab Results 09/23/24 Range/Units 05:20 WBC 13.8 H (4.8-10.8) X10*3/uL RBC 4.90 (4.60-5.80) X10*6/uL Hgb 15.2 (14.0-18.0) g/dl Hct 44.4 (42.0-52.0) % MCV 90.6 (80.0-98.0) fL MCH 31.0 (27.0-33.0) pg MCHC 34.2 (31.0-36.0) g/dl RDW 11.8 (11.0-16.0) % Plt Count 269 (160-400) X10*3/uL MPV 8.9 L (9.4-12.4) fL Immature Gran % (Auto) 0.4 (0.0-0.4) % Neut % (Auto) 87.3 H (45-73) % Lymph % (Auto) 6.9 L (20-40) % [place] % (Auto) 4.9 (2-11) % Eos % (Auto) 0.2 (0-4) % Baso % (Auto) 0.3 (0-2) % Lymph # (Auto) 1.0 L (1.2-4.9) X10*3/uL [place] # (Auto) 0.7 (0.1-1.2) X10*3/uL Eos # (Auto) 0.0 (0.0-0.4) X10*3/uL Baso # (Auto) 0.0 (0.0-0.2) X10*3/uL Abs Immat Gran (auto) 0.06 H (0.00-0.03) X10*3/uL Absolute Neuts (auto) 12.1 H (2.0-8.3) x10*3/uL Absolute Nucleated RBC 0.000 (0.0-0.012) X10*3/uL Nucleated RBC % (auto) 0.0 (0.0-0.2) /100WBC Sodium 140 (135-145) mmol/L Potassium 3.7 (3.3-5.1) mmol/L Chloride 106 (96-108) mmol/L Carbon Dioxide 24 (22-29) mmol/L Anion Gap 14 (12-20) BUN 17 H (9-16) mg/dL Creatinine 0.83 (0.5-1.4) mg/dL Estim Creat Clear Calc 98.3 Estimated GFR > 60 Random Glucose 119 H (60-115) mg/dL Lactic Acid 1.9 (0.5-2.0) mmol/L Calcium 9.3 (8.4-10.2) mg/dL Magnesium 1.7 (1.6-2.6) mg/dL Total Bilirubin 0.5 (0.0-1.0) mg/dL Direct Bilirubin 0.2 (0.0-0.5) mg/dL AST 28 (5-37) U/L ALT 20 (0-40) U/L Alkaline Phosphatase 70 (39-117) U/L Troponin I High Sens < 2.7 (<3.5-35.0) ng/L Total Protein 7.1 (6.5-8.0) g/dL Albumin 4.2 (3.5-5.0) g/dL Lipase 34 (8-78) U/L Independent Interpretation I performed an independent interpretation of an: EKG Interpretation: My independent interpretation of the patient's 12 EKG done on 09/23/2024 at 05:35 hours is as follows: Normal sinus rhythm rate of 99, normal ME interval, QRS duration QTC interval, no ST segment elevation, no ST segment depression, no significant T-wave abnormalities, no PACs, no PVCs. Radiology Impression Discussion of test interpretation with radiology: I have reviewed the radiologist's reading. Radiologist Impression: [address] [address] [address] Scan Report Signed Patient: Brenden Avery MR#: [id number] : 1955 Acct:[id number] Age/Sex: 69 / M ADM Date: 09/23/24 Loc: HO.ED Attending Dr: Ordering Physician: David Perez MD Date of Service: 09/23/24 Procedure(s): CT abdomen pelvis w IV con Accession Number(s): [id number] cc: Misbah Barnett MD; David Perez MD~ Report Number: [id number]: Total DLP = 672.00 mGy-cm CLINICAL HISTORY: LLQ pain, rigors, R O diverticulitis, perforation CT abdomen and pelvis with contrast Comparison: CT - CT ABDOMEN PELVIS W IV CON - 09/23/24 06:05 EDT Findings: The lung bases are clear. Unremarkable gallbladder and solid organs. Nonobstructing 2 mm right lower pole stone. Additional punctate right upper pole stone. No bowel obstruction, pneumoperitoneum, or pneumatosis. Diverticulosis. There is inflammation of a diverticulum along the descending colon image 49 series 3 consistent with acute diverticulitis. No fluid collections. Fluid throughout the colon often seen in the setting of diarrheal illness or cathartic use. Pelvic contents unremarkable. Normal appendix. No acute osseous findings. IMPRESSION: Acute diverticulitis of the sigmoid colon without fluid collection or obstruction. Nonobstructing right renal stones. This document has been electronically signed by: Carlene Morales MD on 09/23/2024 06:45:36 Independent Historian Clinical information obtained from an independent historian. History obtained from or confirmed by: Spouse Medications Administered Generic Name Dose Route Start Last Admin Trade Name Freq PRN Reason Stop Dose Admin Sodium Chloride 1,000 mls @ 999 mls/hr 09/23/24 05:58 09/23/24 06:08 Ns IV 09/23/24 06:58 999 mls/hr .Q1H1M STA Administration Metronidazole 500 mg in 100 mls @ 100 mls/hr 09/23/24 05:58 09/23/24 06:11 Flagyl IV 09/23/24 06:57 100 mls/hr ONCE ONE Administration Discontinued Medications Generic Name Dose Route Start Last Admin Trade Name Freq PRN Reason Stop Dose Admin Iohexol 85 ml 09/23/24 06:20 09/23/24 06:20 Iohexol 350 Mg/Ml 100 Ml Infus..Btl IV 09/23/24 06:21 85 ml ONCE ONE Administration Discharge Plan Discharge Clinical Impression: Acute diverticulitis, Rigors, Diarrhea Patient Disposition: Admitted As Inpatient Print Language: Nepali
[2024-09-23 05:44] LABS: Lactic Acid 1.9 mmol/L (0.5-2.0)
[2024-09-23 05:45] LABS: Alanine Aminotransferase 20 U/L (0-40); Albumin Level 4.2 g/dL (3.5-5.0); Alkaline Phosphatase 70 U/L (39-117); Anion Gap 14 (12-20); Aspartate Amino Transferase 28 U/L (5-37); Bilirubin Direct 0.2 mg/dL (0.0-0.5); Bilirubin Total 0.5 mg/dL (0.0-1.0); Blood Urea Nitrogen 17 mg/dL (9-16); Calcium 9.3 mg/dL (8.4-10.2); Carbon Dioxide 24 mmol/L (22-29); Chloride 106 mmol/L (96-108); Creatinine Clr Calc Pharmacy 98.3; Estimated Glomerular Filt Rate > 60; Glucose Random 119 mg/dL (60-115); Lipase 34 U/L (8-78); Magnesium 1.7 mg/dL (1.6-2.6); Potassium 3.7 mmol/L (3.3-5.1); Sodium 140 mmol/L (135-145); Total Protein 7.1 g/dL (6.5-8.0)
[2024-09-23 05:51] LABS: Troponin-I High Sensitivity < 2.7 ng/L (<3.5-35.0)
[2024-09-23] MEDS: 0.9 % Sodium Chloride 1,000 ML 999 ML IV (06:08)
[2024-09-23] MEDS: metroNIDAZOLE/NS 500 MG/100 ML PIGGYBACK 100 MG IV ×3 (06:11→21:51)
[2024-09-23] MEDS: iohexoL 350 MG/ML 100 ML INFUS..BTL 85 ML IV (06:20)
[2024-09-23] MEDS: Ciprofloxacin Lactate/D5W 400 MG/200 ML PIGGYBACK 200 MG IV ×2 (07:38→20:12)
--- NOTE | 2024-09-23 08:28 | PM.HPGS ---
History of Present Illness History of Present Illness Date of Service: 09/24/24 Chief complaint: Acute Diverticulitis Narrative: Brenden Avery is a 69 year old male the ED because of chills last night. He says that he started to have left lower quadrant and left flank pain about 4 days ago. He describes this mild. He had called his primary care physician he knew that his symptoms were consistent with acute diverticulitis and he was started on Augmentin. He says that he has pain actually better and he had been doing well except for some mild tenderness. However, he started to have some chills last night so he decided to come to the emergency room He had a CAT scan showing acute diverticulitis, uncomplicated, involving the distal descending colon. Currently he says he has minimal pain if at all. He denies any nausea or vomiting . He said he started to have her stools after he took the oral antibiotics. Review of his records show that admitted for acute diverticulitis with a microperforation in 2019. He says this is probably his 3rd episode the past 7 years. He had a colonoscopy in 2019 showing mild sigmoid diverticulosis and a small polyp. He has never had any abdominal surgeries in the past. He has had a lamar placed on his femur for fracture. He has had multiple meniscus surgeries and disc surgery on the neck. Review of Systems Constitutional: Constitutional: Reports chills and Denies fever(s) Cardiovascular: Cardiovascular: Denies chest pain, Denies dyspnea and Denies dyspnea on exertion Respiratory: Respiratory: Denies cough, Denies dyspnea and Denies dyspnea on exertion Gastrointestinal: Gastrointestinal: Denies hematochezia and Denies change in bowel habits Genitourinary: Genitourinary: Denies hematuria and Denies difficulty urinating Musculoskeletal: Musculoskeletal: Denies back pain and Denies limited range of motion Neurologic: Denies focal weakness and Denies convulsions Psychiatric: Psychiatric: Denies depression and Denies mood swings PMFSH Past Medical History Medical History (Updated 09/23/24 @ 08:31 by Saurav Vasquez MD) GERD (gastroesophageal reflux disease) Social History Social History Household Members: Spouse Housing: House Do you presently have visiting nurse or other home services: No Alcohol intake: current Alcohol intake frequency: holidays/special occasions only Patient Tobacco Use Status: Former Tobacco user Smoked in Last 30 Days: No Currently Displaying Signs/Symptoms of Drug Intoxication Withdrawal: No Have you been hit, kicked, punched, or otherwise hurt by someone within the past year? If so, by whom?: No Do you feel safe in your current relationship?: Yes Is there a partner from a previous relationship who is making you feel unsafe now?: No Are you made to feel afraid or neglected: No Advance Directives: No Do you have a plan to hurt others: No Plan Recently lost weight without trying: No Nutrition Risks: No Nutritional Risk service: No Meds Allergies Allergy/AdvReac Type Severity Reaction Status Date / Time No Known Allergies Allergy Verified 09/23/24 05:05 [No Known Allergies*] Home Medications ?Medication ?Instructions ?Recorded ?Confirmed ?Last Taken ?Type acetaminophen 325 mg tablet 650 mg PO Q6H PRN Pain 09/23/24 09/23/24 Unknown History (Tylenol) iexfryackfzo-xkd-vzfbi acid-vit 1 tab PO DAILY 09/23/24 09/23/24 Unknown History K-lycop 400 mcg-20 mcg-370 mcg tablet (Men's 50 Plus Daily Formula) omeprazole 20 mg capsule,delayed 20 mg PO BID@0630,1630 09/23/24 09/23/24 09/22/24 History release Physical Exam Vital Signs: Vital Signs: Last Vital Signs Temp 98.7 F 09/23/24 07:01 Pulse 90 09/23/24 07:01 Resp 18 09/23/24 07:01 BP 114/51 L 09/23/24 07:01 Pulse Ox 96 09/23/24 07:01 O2 Del Method Room Air 09/23/24 07:01 BMI result Body Mass Index 35.2 Const: Other: Looks well General: comfortable and no acute distress Orientation/consciousness: patient oriented x3 Neck: Neck: Yes no lymphadenopathy Resp: Auscultation: clear to auscultation bilaterally Cardio: Rhythm: regular rhythm GI: Other: Very minimal tenderness in the left flank and left lower quadrant area with deep palpation Palpation (GI): Soft to palpation, Tenderness to palpation present (GI) and no guarding Neuro: General: patient oriented x3 Results Results Labs: Short CBC 09/23/24 Range/Units 05:20 WBC 13.8 H (4.8-10.8) X10*3/uL Hgb 15.2 (14.0-18.0) g/dl Hct 44.4 (42.0-52.0) % Plt Count 269 (160-400) X10*3/uL BMP 09/23/24 05:20 Sodium 140 Potassium 3.7 Chloride 106 Carbon Dioxide 24 BUN 17 H Creatinine 0.83 Calcium 9.3 Liver Function 09/23/24 Range/Units 05:20 Total Bilirubin 0.5 (0.0-1.0) mg/dL Direct Bilirubin 0.2 (0.0-0.5) mg/dL AST 28 (5-37) U/L ALT 20 (0-40) U/L Alkaline Phosphatase 70 (39-117) U/L Albumin 4.2 (3.5-5.0) g/dL Additional studies: Laboratory Results WBC 13.8 X10*3/uL (4.8-10.8) H 09/23/24 05:20 RBC 4.90 X10*6/uL (4.60-5.80) 09/23/24 05:20 Hgb 15.2 g/dl (14.0-18.0) 09/23/24 05:20 Hct 44.4 % (42.0-52.0) 09/23/24 05:20 MCV 90.6 fL (80.0-98.0) 09/23/24 05:20 MCH 31.0 pg (27.0-33.0) 09/23/24 05:20 MCHC 34.2 g/dl (31.0-36.0) 09/23/24 05:20 RDW 11.8 % (11.0-16.0) 09/23/24 05:20 Plt Count 269 X10*3/uL (160-400) 09/23/24 05:20 MPV 8.9 fL (9.4-12.4) L 09/23/24 05:20 Immature Gran % (Auto) 0.4 % (0.0-0.4) 09/23/24 05:20 Neut % (Auto) 87.3 % (45-73) H 09/23/24 05:20 Lymph % (Auto) 6.9 % (20-40) L 09/23/24 05:20 [place] % (Auto) 4.9 % (2-11) 09/23/24 05:20 Eos % (Auto) 0.2 % (0-4) 09/23/24 05:20 Baso % (Auto) 0.3 % (0-2) 09/23/24 05:20 Lymph # (Auto) 1.0 X10*3/uL (1.2-4.9) L 09/23/24 05:20 [place] # (Auto) 0.7 X10*3/uL (0.1-1.2) 09/23/24 05:20 Eos # (Auto) 0.0 X10*3/uL (0.0-0.4) 09/23/24 05:20 Baso # (Auto) 0.0 X10*3/uL (0.0-0.2) 09/23/24 05:20 Abs Immat Gran (auto) 0.06 X10*3/uL (0.00-0.03) H 09/23/24 05:20 Absolute Neuts (auto) 12.1 x10*3/uL (2.0-8.3) H 09/23/24 05:20 Absolute Nucleated RBC 0.000 X10*3/uL (0.0-0.012) 09/23/24 05:20 Nucleated RBC % (auto) 0.0 /100WBC (0.0-0.2) 09/23/24 05:20 Sodium 140 mmol/L (135-145) 09/23/24 05:20 Potassium 3.7 mmol/L (3.3-5.1) 09/23/24 05:20 Chloride 106 mmol/L (96-108) 09/23/24 05:20 Carbon Dioxide 24 mmol/L (22-29) 09/23/24 05:20 Anion Gap 14 (12-20) 09/23/24 05:20 BUN 17 mg/dL (9-16) H 09/23/24 05:20 Creatinine 0.83 mg/dL (0.5-1.4) 09/23/24 05:20 Estim Creat Clear Calc 98.3 09/23/24 05:20 Estimated GFR > 60 09/23/24 05:20 Random Glucose 119 mg/dL (60-115) H 09/23/24 05:20 Lactic Acid 1.9 mmol/L (0.5-2.0) 09/23/24 05:20 Calcium 9.3 mg/dL (8.4-10.2) 09/23/24 05:20 Magnesium 1.7 mg/dL (1.6-2.6) 09/23/24 05:20 Total Bilirubin 0.5 mg/dL (0.0-1.0) 09/23/24 05:20 Direct Bilirubin 0.2 mg/dL (0.0-0.5) 09/23/24 05:20 AST 28 U/L (5-37) 09/23/24 05:20 ALT 20 U/L (0-40) 09/23/24 05:20 Alkaline Phosphatase 70 U/L (39-117) 09/23/24 05:20 Troponin I High Sens < 2.7 ng/L (<3.5-35.0) 09/23/24 05:20 Total Protein 7.1 g/dL (6.5-8.0) 09/23/24 05:20 Albumin 4.2 g/dL (3.5-5.0) 09/23/24 05:20 Lipase 34 U/L (8-78) 09/23/24 05:20 Comparison: CT - CT ABDOMEN PELVIS W IV CON - 09/23/24 06:05 EDT Findings: The lung bases are clear. Unremarkable gallbladder and solid organs. Nonobstructing 2 mm right lower pole stone. Additional punctate right upper pole stone. No bowel obstruction, pneumoperitoneum, or pneumatosis. Diverticulosis. There is inflammation of a diverticulum along the descending colon image 49 series 3 consistent with acute diverticulitis. No fluid collections. Fluid throughout the colon often seen in the setting of diarrheal illness or cathartic use. Pelvic contents unremarkable. Normal appendix. No acute osseous findings. IMPRESSION: Acute diverticulitis of the sigmoid colon without fluid collection or obstruction. Nonobstructing right renal stones. Assessment and Plan (1) Acute diverticulitis: Status: Acute 69-year-old male with chills last night and mild left lower quadrant, left flank pain. I have reviewed his CAT scan and this shows some inflammatory changes in the distal descending colon consistent with the acute diverticulitis. He looks well clinically. He does not appear to be septic. His lactate is normal. He will be admitted for IV antibiotics. He can have clear liquids. He otherwise has a very benign exam. I did tell him that there is a very small possibility that the he may require surgical intervention He understands the plan well. We will do serial abdominal exams. His was with him during the discussion. Quality Stroke Does the patient have a stroke diagnosis?: No VTE Prior VTE?: No VTE Risk Level:: Medical - moderate - high VTE Device Contraindication: N/A - Device Ordered VTE Drug Contraindication: N/A - Med Ordered Procedures Date of Service Date of Service: 09/24/24
[2024-09-23 09:07] LABS: CDiff Gene PCR NEGATIVE (Negative)
[2024-09-23 09:14] LABS: Adenovirus F 40/41 Not Detected (Not Detect.); Astrovirus Not Detected (Not Detect.); Campylobacter Not Detected (Not Detect.); Cryptosporidium Not Detected (Not Detect.); Cyclospora cayetanensis Not Detected (Not Detect.); E. coli EAEC Not Detected (Not Detect.); E. coli EPEC Not Detected (Not Detect.); E. coli ETEC Not Detected (Not Detect.); E. coli STEC Not Detected (Not Detect.); Entamoeba histolytica Not Detected (Not Detect.); Giardia lamblia Not Detected (Not Detect.); Norovirus GI/GII Not Detected (Not Detect.); Plesiomonas shigelloides Not Detected (Not Detect.); Rotavirus A Not Detected (Not Detect.); Salmonella Not Detected (Not Detect.); Sapovirus Not Detected (Not Detect.); Shigella sp./EIEC Not Detected (Not Detect.); Vibrio Not Detected (Not Detect.); Vibrio Cholerae Not Detected (Not Detect.); Yersinia enterocolitica Not Detected (Not Detect.)
[2024-09-23] MEDS: Lactated Ringers 1,000 ML 80 ML IVCONT ×2 (09:15→21:51)
--- NOTE | 2024-09-23 09:16 | PHA.MEDREC ---
Pharmacy Consult ? Medication Reconciliation Pharmacy has completed the medication reconciliation, spoke to patient to confirm meds - pt said he was no longer taking augementin.
[2024-09-23] MEDS: Omeprazole 20 MG CAPSULE.DR PO ×2 (09:45→15:47)
[2024-09-23] MEDS: Acetaminophen 325 MG TABLET 650 MG PO ×2 (09:46→19:14)
--- NOTE | 2024-09-23 14:06 | PM.EVENT ---
Event Note Date of Service: 09/23/24 Event Note: Seen on afternoon rounds Feels well Has minimal pain Abdomen is soft and benign No fever Continue antibiotics Time Spent With Patient Time: Total time managing care of this patient today ____ minutes.
--- NOTE | 2024-09-23 14:38 | MHC.CM.PN ---
PT REPORTS HE LIVES WITH HIS AND IS INDEPENDENT WITH CARE HE HAS NO DME AND NO SERVICES COPY OF HCP REQUESTED PCP: JOSE MARI DCP: HOME NO SERVICES VIA PRIVATE TRANSPORT
[2024-09-23] MEDS: 0.9 % Sodium Chloride Flush 3 ML SYRINGE IVFLUSH (20:15)
--- NOTE | 2024-09-23 23:19 | PC.NURSE ---
Assumed care of this patient at 19:00. Handoff report given to oncoming RN at 23:00. Please see shift assessment, tasks in worklist, and MAR for full details.
[2024-09-24 03:52] VITALS: BP 116/58; PULSE 70; RESP 16; TEMP 36.4; O2SAT 94
[2024-09-24] MEDS: Omeprazole 20 MG CAPSULE.DR PO ×2 (05:36→17:36)
[2024-09-24] MEDS: metroNIDAZOLE/NS 500 MG/100 ML PIGGYBACK 100 MG IV ×3 (06:20→21:49)
[2024-09-24 06:35] LABS: Hematocrit 39.9 % (42.0-52.0); Hemoglobin 13.8 g/dl (14.0-18.0); Mean Corpuscular HGB Conc 34.6 g/dl (31.0-36.0); Mean Corpuscular Hemoglobin 31.2 pg (27.0-33.0); Mean Corpuscular Volume 90.3 fL (80.0-98.0); Mean Platelet Volume 9.3 fL (9.4-12.4); Platelet Count 237 X10*3/uL (160-400); Red Blood Count 4.42 X10*6/uL (4.60-5.80); Red Cell Distribution Width 11.9 % (11.0-16.0); White Blood Count 10.2 X10*3/uL (4.8-10.8)
[2024-09-24 07:04] LABS: Anion Gap 13 (12-20); Blood Urea Nitrogen 9 mg/dL (9-16); Calcium 8.8 mg/dL (8.4-10.2); Carbon Dioxide 25 mmol/L (22-29); Chloride 107 mmol/L (96-108); Creatinine Clr Calc Pharmacy 104.6; Estimated Glomerular Filt Rate > 60; Glucose Random 93 mg/dL (60-115); Potassium 3.5 mmol/L (3.3-5.1); Sodium 141 mmol/L (135-145)
[2024-09-24 07:48] VITALS: BP 114/67; PULSE 75; RESP 16; TEMP 36.5; O2SAT 96
[2024-09-24] MEDS: Ciprofloxacin Lactate/D5W 400 MG/200 ML PIGGYBACK 200 MG IV ×2 (08:31→19:00)
[2024-09-24] MEDS: Heparin Sodium,Porcine 5,000 UNIT/ML VIAL 5000 UNIT SUBCUT ×2 (08:31→17:36)
--- NOTE | 2024-09-24 09:49 | PM.PNGS ---
Subjective Subjective Date of Service: 09/24/24 <Bart Leong PA-C - Last Filed: 09/24/24 10:00> 09/24/24 <Saurav Vasquez MD - Last Filed: 09/24/24 09:57> Patient reports: no new complaints, feels better, tolerating liquids well and bowel movement <Bart Leong PA-C - Last Filed: 09/24/24 10:00> Interval history: Patient doing well. Denies abdominal pain. Denies fever/chills. He is tolerating clear liquid diet well. endorses passing BM. Denies pain with BM <Bart Leong PA-C - Last Filed: 09/24/24 10:00> Physical Exam Vital Signs: Vital Signs: Last Vital Signs Temp 97.7 F 09/24/24 07:48 Pulse 75 09/24/24 07:48 Resp 16 09/24/24 07:48 BP 114/67 09/24/24 07:48 Pulse Ox 96 09/24/24 07:48 O2 Del Method Room Air 09/24/24 07:48 BMI result Body Mass Index 35.2 <Bart Leong PA-C - Last Filed: 09/24/24 10:00> Const: General: comfortable and no acute distress <PAT Gresham Last Filed: 09/24/24 10:00> Orientation/consciousness: patient oriented x3 <PAT Gresham Last Filed: 09/24/24 10:00> Resp: Effort & Inspection: normal respiratory effort and able to speak in complete sentences <PAT Gresham Last Filed: 09/24/24 10:00> GI: Inspection: No Abdominal wall edema and No distended <Bart Leong PA-C - Last Filed: 09/24/24 10:00> Palpation (GI): Soft to palpation, not firm, nontender, no guarding and not rigid <PAT Gresham Last Filed: 09/24/24 10:00> Neuro: General: patient oriented x3 <PAT Gresham Last Filed: 09/24/24 10:00> Objective Data Active Medications Acetaminophen (Acetaminophen 325 Mg Tablet) 650 mg PO Q6H PRN PRN Reason: Pain, Mild 1-3,fever,headache Last Admin: 09/23/24 19:14 Dose: 650 mg Documented By: FABIO Calcium Carbonate (Calcium Carbonate 750 Mg Tab.Chew) 750 mg PO Q4H PRN PRN Reason: Heartburn Heparin Sodium (Porcine) (Heparin Sodium,Porcine 5,000 Unit/Ml Vial) 5,000 unit SUBCUT Q8H [facility] Last Admin: 09/24/24 08:31 Dose: 5,000 unit Documented By: JUAN A Lactated Ringer's (Lr) 1,000 mls @ 80 mls/hr IVCONT .[id number] [facility] Last Admin: 09/23/24 21:51 Dose: 80 mls/hr Documented By: SARINA Ciprofloxacin (Cipro) 400 mg in 200 mls @ 200 mls/hr IV Q12H [facility] Last Admin: 09/24/24 08:31 Dose: 200 mls/hr Documented By: JUAN A Metronidazole (Flagyl) 500 mg in 100 mls @ 100 mls/hr IV Q8H [facility] Last Infusion: 09/24/24 08:04 Dose: Infused Documented By: JUAN A Morphine Sulfate (Morphine Sulfate 2 Mg/Ml Cartridge) 2 mg IVPUSH Q3H PRN; Protocol PRN Reason: Pain, Severe (Pain Scale 7-10) Omeprazole (Omeprazole 20 Mg Capsule.Dr) 20 mg PO BID@0630,1630 [facility] Last Admin: 09/24/24 05:36 Dose: 20 mg Documented By: BLOSSOM Sodium Chloride (0.9 % Sodium Chloride Flush 3 Ml Syringe) 3 ml IVFLUSH QSHIFT [facility] Last Admin: 09/24/24 08:37 Dose: Not Given Documented By: JUAN A Non-Admin Reason: IV Running <Bart Leong PA-C - Last Filed: 09/24/24 10:00> Labs CBC & Chem 7: 09/24/24 05:31 09/24/24 05:31 <Bart Leong PA-C - Last Filed: 09/24/24 10:00> Labs: Laboratory Results - last 24 hr 09/23/24 09/24/24 07:36 05:31 MCV 90.3 MCH 31.2 MCHC 34.6 RDW 11.9 Plt Count 237 MPV 9.3 L Absolute Nucleated RBC 0.000 Nucleated RBC % (auto) 0.0 Anion Gap 13 Estim Creat Clear Calc 104.6 Estimated GFR > 60 Random Glucose 93 Calcium 8.8 Stl C. cayetanensis PCR Not Detected Stool Rotavirus A PCR Not Detected Stl Adenov F 40/41 PCR Not Detected Stool Astrovirus (PCR) Not Detected Stool Campylobacter PCR Not Detected Stool Cryptosporidium PCR Not Detected Stl Sh Tox Pr E STEC PCR Not Detected Stool E coli O157 PCR Not applicable Stl Enterotoxigenic E PCR Not Detected Stool EPEC (PCR) Not Detected Stool EAEC (PCR) Not Detected Stl E. histolytica PCR Not Detected Stool Giardia Lamblia PCR Not Detected Stl P. shigelloides PCR Not Detected Stool Salmonella PCR Not Detected Stool Sapovirus (PCR) Not Detected Stl Shigella/EIEC PCR Not Detected St Y.enterocolitica PCR Not Detected Stool Vibrio (PCR) Not Detected Stl Vibrio cholerae PCR Not Detected Stl Norovirus GI/GII PCR Not Detected <Bart Leong PA-C - Last Filed: 09/24/24 10:00> Microbiology Microbiology Results: Microbiology 09/23/24 06:07 Blood Culture - Preliminary Blood - Venous No growth after 24 hours. 09/23/24 05:20 Blood Culture - Preliminary Blood - Venous No growth after 24 hours. <Bart Leong PA-C - Last Filed: 09/24/24 10:00> Procedures Date of Service Date of Service: 09/24/24 <Bart Leong PA-C - Last Filed: 09/24/24 10:00> 09/24/24 <Saurav Vasquez MD - Last Filed: 09/24/24 09:57> Progress Note: A&P Assessment and plan (1) Acute diverticulitis: Status: Acute <Bart Leong PA-C - Last Filed: 09/24/24 10:00> Assessment and Plan: Feels well Denies pain Says he had a good night Abdomen is soft and benign Clear liquids today and advance as tolerated Possible home tomorrow Seen and examined independently <Saurav Vasquez MD - Last Filed: 09/24/24 09:57> Assessment and Plan: 69 year old male admitted to [facility] for acute diverticulitis. Patient is overall doing well today. His pain is much improved, denies pain at rest or with ambulation. Abdominal exam is soft and benign. He remains on clear liquid diet, encouraging increased intake, will likely trial regular diet this afternoon. Improvement in leukocytosis on AM labs. Patient remains on ciprofloxacin and flagyl. Blood cultures show no growth at this time, final pending. Continue abx Continue clear liquid diet, will reassess on afternoon rounds, possibly trial regular diet this afternoon ambulation as tolerated. <Bart Leong PA-C - Last Filed: 09/24/24 10:00> Time Spent With Patient Time: Total time managing care of this patient today ____ minutes. <Bart Leong PA-C - Last Filed: 09/24/24 10:00> Quality Stroke Does the patient have a stroke diagnosis?: No <Saurav Vasquez MD - Last Filed: 09/24/24 09:57> VTE Prior VTE?: No <Saurav Vasquez MD - Last Filed: 09/24/24 09:57> VTE Risk Level:: Medical - moderate - high <Bart Leong PA-C - Last Filed: 09/24/24 10:00> VTE Device Contraindication: N/A - Device Ordered <Bart Leong PA-C - Last Filed: 09/24/24 10:00> VTE Drug Contraindication: N/A - Med Ordered <Bart Leong PA-C - Last Filed: 09/24/24 10:00>
--- NOTE | 2024-09-24 14:35 | MHC.CM.PN ---
[pts dc plan remains home no services when medically ready for dc
[2024-09-24 15:15] VITALS: BP 134/68; PULSE 80; RESP 12; TEMP 36.8; O2SAT 95
[2024-09-24] MEDS: 0.9 % Sodium Chloride Flush 3 ML SYRINGE IVFLUSH ×2 (17:36→21:49)
[2024-09-24 19:07] VITALS: BP 129/63; PULSE 90; RESP 17; TEMP 36.8; O2SAT 95
[2024-09-25 03:35] VITALS: BP 124/62; PULSE 75; RESP 16; TEMP 36.7; O2SAT 96
[2024-09-25] MEDS: metroNIDAZOLE/NS 500 MG/100 ML PIGGYBACK 100 MG IV (05:31)
[2024-09-25] MEDS: Omeprazole 20 MG CAPSULE.DR PO (05:31)
[2024-09-25 07:31] VITALS: BP 117/69; PULSE 81; RESP 18; TEMP 36.2; O2SAT 95
--- NOTE | 2024-09-25 07:51 | PM.PNGS ---
Subjective Subjective Date of Service: 09/25/24 <Bart Leong PA-C - Last Filed: 09/25/24 08:01> 09/25/24 <Saurav Vasquez MD - Last Filed: 09/25/24 08:40> Patient reports: no new complaints, feels better, pain is less, tolerating a regular diet, bowel movement and diarrhea <PAT Gresham Last Filed: 09/25/24 08:01> Interval history: Patient is doing well today, feels ready to go home today. His pain is much improved. He was started on regular diet yesterday, patients states he ate his whole meal, denies n/v or abdominal pain after his meal. He endorses 2 liquid bowel movements yesterday. Denies fever or chills <PAT Gresham Last Filed: 09/25/24 08:01> Physical Exam Vital Signs: Vital Signs: Last Vital Signs Temp 97.1 F 09/25/24 07:31 Pulse 81 09/25/24 07:31 Resp 18 09/25/24 07:31 BP 117/69 09/25/24 07:31 Pulse Ox 95 09/25/24 07:31 O2 Del Method Room Air 09/25/24 07:31 BMI result Body Mass Index 35.2 <PAT Gresham Last Filed: 09/25/24 08:01> Const: General: comfortable and no acute distress <PAT Gresham Last Filed: 09/25/24 08:01> Orientation/consciousness: patient oriented x3 <PAT Gresham Last Filed: 09/25/24 08:01> Resp: Effort & Inspection: normal respiratory effort and able to speak in complete sentences <PAT Gresham Last Filed: 09/25/24 08:01> GI: Inspection: No distended <PAT Gresham Last Filed: 09/25/24 08:01> Palpation (GI): Soft to palpation, not firm, nontender, no guarding and not rigid <PAT Gresham Last Filed: 09/25/24 08:01> Percussion: Yes normal to percussion <PAT Gresham Last Filed: 09/25/24 08:01> Neuro: General: patient oriented x3 and moves all extremities <Bart Leong PA-C - Last Filed: 09/25/24 08:01> Objective Data Active Medications Acetaminophen (Acetaminophen 325 Mg Tablet) 650 mg PO Q6H PRN PRN Reason: Pain, Mild 1-3,fever,headache Last Admin: 09/23/24 19:14 Dose: 650 mg Documented By: FABIO Calcium Carbonate (Calcium Carbonate 750 Mg Tab.Chew) 750 mg PO Q4H PRN PRN Reason: Heartburn Heparin Sodium (Porcine) (Heparin Sodium,Porcine 5,000 Unit/Ml Vial) 5,000 unit SUBCUT Q8H [facility] Last Admin: 09/25/24 01:14 Dose: Not Given Documented By: CHINYERE Non-Admin Reason: Patient Refused Ciprofloxacin (Cipro) 400 mg in 200 mls @ 200 mls/hr IV Q12H [facility] Last Infusion: 09/24/24 20:05 Dose: Infused Documented By: CHINYERE Metronidazole (Flagyl) 500 mg in 100 mls @ 100 mls/hr IV Q8H [facility] Last Infusion: 09/25/24 07:29 Dose: Infused Documented By: EDUIN Morphine Sulfate (Morphine Sulfate 2 Mg/Ml Cartridge) 2 mg IVPUSH Q3H PRN; Protocol PRN Reason: Pain, Severe (Pain Scale 7-10) Omeprazole (Omeprazole 20 Mg Capsule.Dr) 20 mg PO BID@0630,1630 [facility] Last Admin: 09/25/24 05:31 Dose: 20 mg Documented By: CHINYERE Sodium Chloride (0.9 % Sodium Chloride Flush 3 Ml Syringe) 3 ml IVFLUSH QSHIFT [facility] Last Admin: 09/24/24 21:49 Dose: 3 ml Documented By: CHINYERE <Bart Leong PA-C - Last Filed: 09/25/24 08:01> Labs CBC & Chem 7: 09/24/24 05:31 09/24/24 05:31 <Bart Leong PA-C - Last Filed: 09/25/24 08:01> Microbiology Microbiology Results: Microbiology 09/23/24 05:20 Blood Culture - Preliminary Blood - Venous No growth after 48 hours. 09/23/24 06:07 Blood Culture - Preliminary Blood - Venous No growth after 24 hours. <Bart Leong PA-C - Last Filed: 09/25/24 08:01> Procedures Date of Service Date of Service: 09/25/24 <Bart Leong PA-C - Last Filed: 09/25/24 08:01> 09/25/24 <Saurav Vasquez MD - Last Filed: 09/25/24 08:40> Progress Note: A&P Assessment and plan (1) Acute diverticulitis: Status: Acute <Bart Leong PA-C - Last Filed: 09/25/24 08:01> Assessment and Plan: Continues to feel well Has had no abdominal pain for several days now No fever Tolerating regular diet Abdomen is soft, benign, nontender Looks well Okay to DC Office follow-up he understands risks of recurrence Seen and examined independently <Saurav Vasquez MD - Last Filed: 09/25/24 08:40> Assessment and Plan: 69 year old male admitted for management of acute diverticulitis. Patient is doing well today, currently asymptomatic. Tolerating regular diet. Passing bowel movements. Abdomen is soft and benign. Patient feels ready to be discharged this morning. Plan for d/c today <Bart Leong PA-C - Last Filed: 09/25/24 08:01> Time Spent With Patient Time: Total time managing care of this patient today ____ minutes. <Bart Leong PA-C - Last Filed: 09/25/24 08:01> Quality Stroke Does the patient have a stroke diagnosis?: No <Bart Leong PA-C - Last Filed: 09/25/24 08:01> VTE Prior VTE?: No <Bart Leong PA-C - Last Filed: 09/25/24 08:01> VTE Risk Level:: Medical - moderate - high <Bart Leong PA-C - Last Filed: 09/25/24 08:01> VTE Device Contraindication: N/A - Device Ordered <Bart Leong PA-C - Last Filed: 09/25/24 08:01> VTE Drug Contraindication: N/A - Med Ordered <Bart Leong PA-C - Last Filed: 09/25/24 08:01>
[2024-09-25] MEDS: Heparin Sodium,Porcine 5,000 UNIT/ML VIAL 5000 UNIT SUBCUT (08:07)
[2024-09-25] MEDS: Ciprofloxacin Lactate/D5W 400 MG/200 ML PIGGYBACK 200 MG IV (08:07)
--- NOTE | 2024-09-25 08:20 | P.DS_ITS ---
DS: Providers Provider Date of Service: 09/25/24 Date of admission: 09/23/24 08:34 Date of discharge: 09/25/24 Primary care physician: Misbah Barnett MD Admitting clinician: Saurav Vasquez Attending physician on discharge: Saurav Vasquez DS: Diagnosis Discharge Diagnosis (1) Acute diverticulitis: Status: Acute DS: Summary Hospital Course Hospital Course: Admission HPI: Brenden Avery is a 69 year old male the ED because of chills last night. He says that he started to have left lower quadrant and left flank pain about 4 days ago. He describes this mild. He had called his primary care physician he knew that his symptoms were consistent with acute diverticulitis and he was started on Augmentin. He says that he has pain actually better and he had been doing well except for some mild tenderness. However, he started to have some chills last night so he decided to come to the emergency room. He had a CAT scan showing acute diverticulitis, uncomplicated, involving the distal descending colon. Currently he says he has minimal pain if at all. He denies any nausea or vomiting . He said he started to have her stools after he took the oral antibiotics. Review of his records show that admitted for acute diverticulitis with a microperforation in 2019. He says this is probably his 3rd episode the past 7 years. He had a colonoscopy in 2019 showing mild sigmoid diverticulosis and a small polyp. He has never had any abdominal surgeries in the past. He has had a lamar placed on his femur for fracture. He has had multiple meniscus surgeries and disc surgery on the neck. Hospital Course The patient was admitted to [facility] on 09/23/2024 for IV antibiotics, he was started on clear liquid diet. Later that day patient was seen in afternoon rounds, his pain was improving abdominal exam remained benign. Patient was not appearing to be septic lactate levels were normal. On 09/24/2024 patient continued to improve, he was asymptomatic denying abdominal pain fever, chills. Leukocytosis improved from previous day. He was tolerating clear liquid diet and was passing bowel movements. Later that day patient's diet was advanced to regular diet. On the date of discharge the patient continued to improve, he continued to deny abdominal pain, fever, chills. He tolerated regular diet well without reproducing symptoms. Abdominal exam remained benign and soft. Patient felt comfortable managing at home with oral antibiotics. Patient was stable at the time of discharge Status at Discharge Functional status at discharge: independent ambulation Overall status at discharge: patient is progressing back to baseline Time Attestation Discharge Coordination Time (in mins): 30 Quality: Safe Use of Opioids Does Pt have an Active Cancer Diagnosis on the Problem List?: No Quality: Stroke Does the patient have a stroke diagnosis?: No Physical Exam Vital Signs: Vital Signs: Last Vital Signs Temp 97.1 F 09/25/24 07:31 Pulse 81 09/25/24 07:31 Resp 18 09/25/24 07:31 BP 117/69 09/25/24 07:31 Pulse Ox 95 09/25/24 07:31 O2 Del Method Room Air 09/25/24 07:31 BMI result Body Mass Index 35.2 Const: General: healthy appearing, comfortable and no acute distress Orientation/consciousness: patient oriented x3 Resp: Effort & Inspection: normal respiratory effort and able to speak in complete sentences GI: Inspection: No distended Palpation (GI): Soft to palpation, not firm, nontender, no guarding and not rigid Neuro: General: patient oriented x3 DS: Data Data Completed and Pending Labs on day of discharge: Preliminary micro results at discharge 09/23/24 06:07 Blood Culture - Preliminary Blood - Venous No growth after 48 hours. 09/23/24 05:20 Blood Culture - Preliminary Blood - Venous No growth after 48 hours. Discharge Plan Discharge Anticipated Discharge Date/Time: 09/25/24 09:17 Patient Disposition: Home, Self-Care Discharge Diagnosis: Acute diverticulitis Referrals: Misbah Barnett MD [Primary Care Provider] - 1 Week Bart Leong PA-C [Physician Apartment Maintenance Supervisor] - 1 Week Discharge Medications: New metronidazole 500 mg tablet 500 mg PO BID 6 Days Qty: 12 0RF ciprofloxacin HCl 500 mg tablet 500 mg PO BID 6 Days Qty: 12 0RF Continued omeprazole 20 mg capsule,delayed release(DR/EC) 20 mg PO BID@0630,1630 acetaminophen [Tylenol] 325 mg Tablet 650 mg PO Q6H PRN (Reason: Pain) Men's 50 Plus Daily Formula 400-20-370 mcg Tablet 1 tab PO DAILY Discharge Orders: Discharge Order (Routine); Ordered 09/25/24 Ordered By: Bart Salo Diet: Advance to usual diet Activity on Discharge: As tolerated Stand Alone Forms: Patient Portal Discharge page Print Language: Bengali Activity Restrictions/Additional Instructions: You were admitted to [facility] for the management of acute diverticulitis. We will send you home with two oral antibiotics that you will continue to take for the next 6 days. Please take these as prescribed, and make sure to complete the full course. You will follow up in the office with Dr. Vasquez in 1-2 weeks. You can call to make this appointment. Please reach out to the [facility] general surgery office to schedule this appointment . Please reach out to the office or be seen at the emergency department if you develop: -Fever >101.5 -Increasing pain or swelling of the area -You develop nausea or vomiting Care Plan Goals: Return to baseline level of health Health Concerns: Acute diverticulitis Plan of Treatment: Continue antibiotics at home for the next 6 days Assessment: Patient doing well Discharge Date/Time: 09/25/24 10:47
--- NOTE | 2024-09-25 09:54 | MHC.CM.PN ---
Patient is discharged to home self care today. His will provide transportation home.
== END 2024-09-25 10:47 | disposition home or self-care (01) | DRG 392 ==
LOC: HO.ED 07:11 → HO.EDOVER 08:40 → HO.S3 09:54
PROVIDERS: Admitting Provider Surgery; Emergency Provider Emergency Medicine Emergency Medical Services; PCP Internal Medicine; Visit Provider Surgery
DX: K57.32 Diverticulitis of large intestine without perforation or abscess without bleeding (principal); Z87.891 Personal history of nicotine dependence; Z79.899 Other long term (current) drug therapy
CPT/HCPCS: 36415; 74177; 80048; 80053; 82248; 83605; 83690; 83735; 84484; 85025; 85027; 87040; 87493; 87507; 93005; 99221; 99285; J0744; J1644; J1836; J7120; Q9967

== ENCOUNTER → 2024-09-23 05:11 | Outpatient (BNV) | payer OTHER, SELFPAY | PROVIDERS: Admitting Provider Surgery; Emergency Provider Emergency Medicine Emergency Medical Services; PCP Internal Medicine; Visit Provider Internal Medicine Cardiovascular Disease | DX: R00.0 Tachycardia, unspecified (principal); R10.9 Unspecified abdominal pain | CPT/HCPCS: 93010 ==

== ENCOUNTER → 2024-09-23 05:58 | Outpatient (BNV) | payer OTHER, SELFPAY | PROVIDERS: Emergency Provider Emergency Medicine Emergency Medical Services; PCP Internal Medicine; Visit Provider Radiology Diagnostic Radiology | DX: K57.32 Diverticulitis of large intestine without perforation or abscess without bleeding (principal); N20.0 Calculus of kidney | CPT/HCPCS: 74177 ==

== ENCOUNTER → 2024-09-23 08:34 | Outpatient (BNV) | payer OTHER, SELFPAY | PROVIDERS: Admitting Provider Surgery; Emergency Provider Emergency Medicine Emergency Medical Services; PCP Internal Medicine; Visit Provider Surgery | DX: K57.92 Diverticulitis of intestine, part unspecified, without perforation or abscess without bleeding (principal) | CPT/HCPCS: 99222; 99232; 99499 ==

== ENCOUNTER 2024-11-08 10:37 | Outpatient (AMB) | payer OTHER, SELFPAY ==
--- NOTE | 2024-11-08 10:38 | MHC.OFFVIS ---
Intake Visit Reasons: Diverticulitis Intake Note: Patient is seen in office for ER follow up visit, following for acute diverticulitis. Patient c/o: over the past 6 yrs has had 3 episodes of diverticulitis, currently has no issues, but would like to discuss options due to continue flare ups CT: 09/23/24 Striker Off Required: No Accompanied by: Self / Same As Patient Allergies No Known Allergies (No Known Allergies*) Allergy (Verified 11/08/24 10:44) HPI HPI Diverticulitis: Details: 69-year-old male here for follow-up for diverticular disease. He was admitted to the hospital in Aug, 2024 because of an uncomplicated diverticulitis of the sigmoid colon. He was discharged after 3 days. He says that he has had 3 episodes of diverticulitis in the past 7 years. He says he has had no further episodes since his discharge. He has good oral intake. [facility] Medical History (Updated 11/08/24 @ 10:59 by Saurav Vasquez MD) Diverticular disease GERD (gastroesophageal reflux disease) Social History Household Members: Spouse Housing: House Do you presently have visiting nurse or other home services: No Alcohol intake: current Alcohol intake frequency: holidays/special occasions only Patient Tobacco Use Status: Former Tobacco user service: No Review of Systems Const Denies chills and Denies fever(s) Card Denies chest pain, Denies dyspnea and Denies dyspnea on exertion Resp Denies cough, Denies dyspnea and Denies dyspnea on exertion GI Denies hematochezia and Denies change in bowel habits Denies hematuria and Denies difficulty urinating Musc Denies back pain and Denies limited range of motion Neuro Denies focal weakness and Denies convulsions Psych Denies depression and Denies mood swings Physical Exam Const General: comfortable and no acute distress Orientation/consciousness: patient oriented x3 Neck Neck: Yes no lymphadenopathy Resp Auscultation: clear to auscultation bilaterally Cardio Rhythm: regular rhythm GI Palpation (GI): Soft to palpation, nontender and no guarding Neuro General: patient oriented x3 Assessment & Plan Assessment & Plan (1) Diverticular disease: Code(s): K57.90 - Diverticulosis of intestine, part unspecified, without perforation or abscess without bleeding Category: Medical Plan: He was admitted for diverticulitis, uncomplicated, last Aug, 2024. He says he has been doing well since at that time. He denies any significant pain or any recurrent episodes This was his 3rd admission for diverticulitis in the past 7 years. I did tell him that there is the option of surgical resection for recurrent diverticulitis. I explained to him briefly the technique of the procedure as well as the risks, benefits, and alternatives. He does not want to have any surgery at this time. I did tell him that healthy lifestyle including some weight loss will be helpful him as his body mass index is high. He says that he will call me if you has any questions down the line. Medications: Discontinued ciprofloxacin HCl Discontinued Reason: Patient Completed Course 500 mg PO BID 6 days 12 tabs 0RF metronidazole Discontinued Reason: Patient Completed Course 500 mg PO BID 6 days 12 tabs 0RF Coding Level of Care Code Est Pt Level 3 (67609) Diagnoses Diverticular disease K57.90
--- OUTSIDE RECORDS SUMMARY | 2024-11-08 11:12 | XMS_ITS | Patient Health Record ---
Author Organization Misbah Barnett MD Address [address] [place], [place] [id number] Care Team Providers Care Administrative Assistant Office Manager Name Role Phone Misbah Barnett Primary Care Provider [phone] Allergies No Known Allergies Results Component Value Reference Range Notes Complete Blood Count Auto Di ff Reviewed date:04/02/2024 12:45:26 PM Interpretation: Performing Lab:[facility], [address] [place] [phone] Notes/Report: White Blood Count 6.0 4.8-10.8 X10*3/uL [...] 0.0-0.2 /100WBC Neutrophils Absolute Auto 3.2 2.0-8.3 x10*3/uL Imm Gran Abs Auto 0.02 0.00-0.03 X10*3/uL Lymphocytes Absolute Auto 2.0 1.2-4.9 X10*3/uL Monocytes Absolute Auto 0.5 0.1-1.2 X10*3/uL Eosinophils Absolute Auto 0.3 0.0-0.4 X10*3/uL Basophils Absolute Auto 0.0 0.0-0.2 X10*3/uL NRBC Abs Auto 0.000 0.0-0.012 X10*3/uL Comprehensive [place]. Panel Fa st Reviewed date:04/02/2024 05:12:00 PM Interpretation: Performing Lab:[facility], [address] [place] [phone] Notes/Report: Sodium 140 135-145 mmol/L Potassium 4.2 [...] Panel Reviewed date:04/02/2024 04:50:50 PM Interpretation: Performing Lab:[facility], [address] [place] [phone] Notes/Report: Triglycerides 192 <150 mg/dL Desirable Triglyceride: [...] (Free>4and<10) Reviewed date:04/02/2024 05:14:44 PM Interpretation: Performing Lab:[facility], [address] [place] [phone] Notes/Report: PSA,Total (Free>4and<10) 3.62 0.00-4.00 ng/mL A [...] Random Reviewed date:04/02/2024 05:15:07 PM Interpretation: Performing Lab:[facility], [address] [place] [phone] Notes/Report: Creatinine Urine 140.27 Microalbumin Urine < 5.0 Microalbum/Creatinine Ratio Ur TNP <30 ug/mg cr Unable to calculate albumin/creatinine ratio due to low microalbumin or creatinine result. Hemoglobin A1c Reviewed date:04/03/2024 07:19:13 PM Interpretation: Performing Lab:[address] [phone] Notes/Report: Hemoglobin A1c % 5.5 <6.0 % [...] average glucose, using the formula of the O5J-Tojbehy Average Glucose study (ADAG), Diabetes Care, Vol.31,#8, Nov. 2007 UA ClnCatch+Micro w/rflx Cul t Reviewed date:04/02/2024 05:15:47 PM Interpretation: Performing Lab:[address] [phone] Notes/Report: Urine, Clean Catch Color Urine Yellow Appearance Urine Clear PH 7.0 5.0-9.0 Glucose Urine UA Negative Negative mg/dL Urine Blood Negative Negative Specific [place] - Urine 1.020 1.005-1.025 Urine Protein Negative Neg-Trace mg/dL Urine Ketones Negative Negative mg/dL Nitrite Urine Negative Negative Leukocyte Esterase Urine Negative Negative RBC Urine 0-2 0-2 /HPF WBC Urine 0-5 0-5 /HPF Squamous Epithelial Cell Urine 0-2 0-2 /HPF Bacteria Urine None Seen None Seen Hyaline Casts Urine 0-2 0-2 /LPF Occult Blood, Stool, Guaiac Reviewed date:04/11/2024 02:49:20 PM Interpretation:Negative Performing Lab: Notes/Report: Negative Occult Blood, Stool, Guaiac Neg Complete Blood Count Auto Di ff Reviewed date:09/23/2024 02:55:11 PM Interpretation: Performing Lab:[address] [phone] Notes/Report: White Blood Count 13.8 4.8-10.8 X10*3/uL Red Blood Count 4.90 4.60-5.80 X10*6/uL Hemoglobin 15.2 14.0-18.0 g/dl Hematocrit 44.4 42.0-52.0 % Mean Corpuscular Volume 90.6 80.0-98.0 fL Mean Corpuscular Hemoglobin 31.0 27.0-33.0 pg Mean Corpuscular HGB Conc 34.2 31.0-36.0 g/dl Red Cell Distribution Width 11.8 11.0-16.0 % Platelet Count 269 160-400 X10*3/uL Mean Platelet Volume 8.9 9.4-12.4 fL Neutrophils Percent Auto 87.3 45-73 % Imm Gran Pct Auto 0.4 0.0-0.4 % Lymphocytes Percent Auto 6.9 20-40 % Monocytes Percent Auto 4.9 2-11 % Eosinophils Percent Auto 0.2 0-4 % Basophils Percent Auto 0.3 0-2 % NRBC Pct Auto 0.0 0.0-0.2 /100WBC Neutrophils Absolute Auto 12.1 2.0-8.3 x10*3/uL Imm Gran Abs Auto 0.06 0.00-0.03 X10*3/uL Lymphocytes Absolute Auto 1.0 1.2-4.9 X10*3/uL Monocytes Absolute Auto 0.7 0.1-1.2 X10*3/uL Eosinophils Absolute Auto 0.0 0.0-0.4 X10*3/uL Basophils Absolute Auto 0.0 0.0-0.2 X10*3/uL NRBC Abs Auto 0.000 0.0-0.012 X10*3/uL Comprehensive Met. Panel Reviewed date:09/23/2024 02:54:46 PM Interpretation: Performing Lab:[facility], [address] [place] [phone] Notes/Report: Sodium 140 135-145 mmol/L Potassium 3.7 3.3-5.1 mmol/L Chloride 106 96-108 mmol/L Carbon Dioxide 24 22-29 mmol/L Anion Gap 14 12-20 Blood Urea Nitrogen 17 9-16 mg/dL Creatinine 0.83 0.5-1.4 mg/dL Creatinine Clr Calc Pharmacy 98.3 eGFR (calculated from the MDRD study equation) and eCrCl (calculated from the Cockcroft-Gault equation) are based on different parameters and may not yield comparable results. If eCrCl result is absurd, please check patient's height/weight. Estimated Glomerular Filt Rate > 60 Chronic Kidney Disease: Estimated GFR < 60 mL/min/1.73m2 Severe Kidney Disease: Estimated GFR < 15 mL/min/1.73m2 Glucose Random 119 60-115 mg/dL Calcium 9.3 8.4-10.2 mg/dL Bilirubin Total 0.5 0.0-1.0 mg/dL Aspartate Amino Transferase 28 5-37 U/L Alanine Aminotransferase 20 0-40 U/L Total Protein 7.1 6.5-8.0 g/dL Albumin Level 4.2 3.5-5.0 g/dL Alkaline Phosphatase 70 39-117 U/L Liver Panel Reviewed date:09/23/2024 02:52:52 PM Interpretation: Performing Lab:[facility], [address] [place] [phone] Notes/Report: Bilirubin Direct 0.2 0.0-0.5 mg/dL Lactic Acid Reviewed date:09/23/2024 02:51:59 PM Interpretation: Performing Lab:[facility], [address] [place] [phone] Notes/Report: Lactic Acid 1.9 0.5-2.0 mmol/L Magnesium Reviewed date:09/23/2024 02:53:33 PM Interpretation: Performing Lab:[facility], [address] [place] [phone] Notes/Report: Magnesium 1.7 1.6-2.6 mg/dL Troponin-I High Sensitivity Reviewed date:09/23/2024 02:54:19 PM Interpretation: Performing Lab:[facility], [address] [place] [phone] Notes/Report: Troponin-I High Sensitivity < 2.7 <3.5-35.0 ng/L The [place] high sensitivity Troponin-I results should be used in conjunction with other diagnostic information such as ECG, clinical observations and information, and patient symptoms to aid in the diagnosis of [place]. Lipase Reviewed date:09/23/2024 02:53:01 PM Interpretation: Performing Lab:[facility], [address] [place] [phone] Notes/Report: Lipase 34 8-78 U/L Blood Culture (First) Reviewed date:09/29/2024 11:54:13 AM Interpretation: Performing Lab:[address] [phone] Notes/Report: Blood Culture (First) No growth after 5 days. Blood Culture (Second) Reviewed date:09/29/2024 11:54:21 AM Interpretation: Performing Lab:[address] [phone] Notes/Report: Blood Culture (Second) No growth after 5 days. CDiff Gene PCR Reviewed date:09/23/2024 02:52:43 PM Interpretation: Performing Lab:[address] [phone] Notes/Report: CDiff Gene PCR NEGATIVE Negative If C. difficile strongly suspected despite one negative test, a second test may be sent vs. empiric treatment for C. difficile infection. GI Panel Reviewed date:09/23/2024 02:53:22 PM Interpretation: Performing Lab:[address] [phone] Notes/Report: Campylobacter Not Detected Not Detect. Plesiomonas shigelloides Not Detected Not Detect. Salmonella Not Detected Not Detect. Vibrio Not Detected Not Detect. Vibrio Cholerae Not Detected Not Detect. Yersinia enterocolitica Not Detected Not Detect. E. coli EAEC Not Detected Not Detect. E. coli EPEC Not Detected Not Detect. E. coli ETEC Not Detected Not Detect. E. coli STEC Not Detected Not Detect. E. coli O157 Not applicable Not Detect. E. coli containing the O157 antigen are a subset of Shiga-like toxin-producing E. coli (STEC). Shigella sp./EIEC Not Detected Not Detect. Cryptosporidium Not Detected Not Detect. Cyclospora cayetanensis Not Detected Not Detect. Entamoeba histolytica Not Detected Not Detect. Giardia lamblia Not Detected Not Detect. Adenovirus F 40/41 Not Detected Not Detect. Astrovirus Not Detected Not Detect. Norovirus GI/GII Not Detected Not Detect. Rotavirus A Not Detected Not Detect. Sapovirus Not Detected Not Detect. All results must be correlated with clinical findings. Negative results do not exclude the possibility of gastrointestinal infection and should not be used as the sole basis for diagnosis, treatment, or other management decisions. Virus, bacteria, and parasite nucleic acid may persist in vivo independently of organism viability. Additionally, some organisms may be carried asymptomatically. Detection of organism targets does not imply that the corresponding organisms are infectious or are the causative agents for clinical symptoms. There is a risk of false negative values due to the presence of sequence variants in the gene targets of the assay, amplification inhibitors in specimens, or inadequate numbers of organisms for amplification. The identification of several diarrheagenic E. coli pathotypes has historically relied upon phenotypic characteristics. This panel targets genetic determinants characteristic of most pathogenic strains, but may not detect all strains having phenotypic characteristics of a pathotype. The performance of this test has not been established for monitoring treatment of infection with any of the panel organisms. This assay is performed by Multiplexed PCR, utilizing the iConText Array. CT abdomen pelvis w con Reviewed date:09/23/2024 02:50:45 PM Interpretation: Performing Lab: Notes/Report: [place] [address] CT Scan Report Signed Patient: Brenden Avery MR#: [id number] : 1955 Acct:[id number] Age/Sex: 69 / M ADM Date: 09/23/24 Loc: HO.ED Attending Dr: Ordering Physician: David Perez MD Date of Service: 09/23/24 Procedure(s): CT abdomen pelvis w IV con Accession Number(s): [id number] cc: Misbah Barnett MD; David Perez MD Report Number: [id number]: Total DLP = 672.00 mGy-cm CLINICAL HISTORY: LLQ pain, rigors, R O diverticulitis, perforation CT abdomen and pelvis with contrast Comparison: CT - CT ABDOMEN PELVIS W IV CON - 09/23/24 06:05 EDT Findings: The lung bases are clear. Unremarkable gallbladder and solid organs. Nonobstructing 2 mm right lower pole stone. Additional punctate right upper pole stone. No bowel obstruction, pneumoperitoneum, or pneumatosis. Diverticulosis. There is inflammation of a diverticulum along the descending colon image 49 series 3 consistent with acute diverticulitis. No fluid collections. Fluid throughout the colon often seen in the setting of diarrheal illness or cathartic use. Pelvic contents unremarkable. Normal appendix. No acute osseous findings. IMPRESSION: Acute diverticulitis of the sigmoid colon without fluid collection or obstruction. Nonobstructing right renal stones. This document has been electronically signed by: Carlene Morales MD on 09/23/2024 06:45:36 Dictated By: Carlene Morales MD Signed By: <Electronically signed by Carlene Morales MD in [place]> 09/23/24645 DD/ 4 TD/TT: 09/23/24644 Lumber Cutter: [place] [address] CT Scan Report Signed Patient: Brenden Avery MR#: [id number] : 1955 Acct:[id number] Age/Sex: 69 / M ADM Date: 09/23/24 Loc: .ED Attending Dr: Ordering Physician: David Perez MD Date of Service: 09/23/24 Procedure(s): CT abdomen pelvis w IV con Accession Number(s): [id number] cc: Misbah Barnett MD; David Perez MD Report Number: [id number]: Total DLP = 672.00 mGy-cm CLINICAL HISTORY: LL Q pain, rigors, R O diverticulitis, perforation CT abdomen and pelvi s with contrast Comparison: CT - CT ABDOMEN PELVIS W IV CON - 09/23/24 06:05 EDT Findings: The lung bases are clear. Unremarkable gallbladder and solid organs. Nonobstructing 2 mm right lower pole stone. Additional punctate right upper pole stone. No bowel obstruction , pneumoperitoneum, or pneumatosis. Diverticulosis. There is inflammatio n of a diverticulum along the descending colon image 49 series 3 consiste nt with acute diverticulitis. No fluid collections. Fluid throughout the colon often seen in the setting of diarrheal illness or cathartic use. Pelvic contents unremarkable. Normal appendix. No acute osseous findings. IMPRESSION: Acute diverticulitis of the sigmoid colon without fluid collection or obstruction. Nonobstructing right renal stones. This document has be en electronically signed by: Carlene Morales MD on 09/23/2024 06:45:36 Dictated By: Carlene Morales MD Signed By: <Electronically signed by Carlene Morales MD in [place]> 09/23/2446 DD/ 4 TD/TT: 09/23/24644 Lumber Cutter: Complete Blood Count no Diff Reviewed date:09/24/2024 12:47:09 PM Interpretation: Performing Lab:[facility], [address] [place] [phone] Notes/Report: White Blood Count 10.2 4.8-10.8 X10*3/uL Red Blood Count 4.42 4.60-5.80 X10*6/uL Hemoglobin 13.8 14.0-18.0 g/dl Hematocrit 39.9 42.0-52.0 % Mean Corpuscular Volume 90.3 80.0-98.0 fL Mean Corpuscular Hemoglobin 31.2 27.0-33.0 pg Mean Corpuscular HGB Conc 34.6 31.0-36.0 g/dl Red Cell Distribution Width 11.9 11.0-16.0 % Platelet Count 237 160-400 X10*3/uL Mean Platelet Volume 9.3 9.4-12.4 fL NRBC Pct Auto 0.0 0.0-0.2 /100WBC NRBC Abs Auto 0.000 0.0-0.012 X10*3/uL Basic Metabolic Panel Reviewed date:09/24/2024 12:47:25 PM Interpretation: Performing Lab:[facility], [address] [place] [phone] Notes/Report: Sodium 141 135-145 mmol/L Potassium 3.5 3.3-5.1 mmol/L Chloride 107 96-108 mmol/L Carbon Dioxide 25 22-29 mmol/L Anion Gap 13 12-20 Blood Urea Nitrogen 9 9-16 mg/dL Creatinine 0.78 0.5-1.4 mg/dL Creatinine Clr Calc Pharmacy 104.6 eGFR (calculated from the MDRD study equation) and eCrCl (calculated from the Cockcroft-Gault equation) are based on different parameters and may not yield comparable results. If eCrCl result is absurd, please check patient's height/weight. Estimated Glomerular Filt Rate > 60 Chronic Kidney Disease: Estimated GFR < 60 mL/min/1.73m2 Severe Kidney Disease: Estimated GFR < 15 mL/min/1.73m2 Glucose Random 93 60-115 mg/dL Calcium 8.8 8.4-10.2 mg/dL Reason For Referral No Information Medications Medication SIG (Take, Route, Frequency, Duration) Notes Start Date End Date Status Ibuprofen 800 MG 1 tablet Orally Thre e times a day for 30 day(s) 10/04/2013 Not-Ta alexander Tylenol 8 Hour 650 MG 2 tablets as neede d Orally every 8 hrs Active Omeprazole 20 MG TAKE 1 CAPSULE BY [facility] TWICE A DAY ORALLY 90 DAYS Orally for 90 days Active Immunizations Vaccine Route Administration Date Status Comme nts [...] Unknown 07/27/2018 Refused Tetanus Unknown 12/29/2014 Pending Social History Tobacco Use: Social History Observation Description Date Details (start date - stop date) Former Smoker NA - NA Tobacco Use/Smoking Question Answer Notes Patient is [...] Never (0 point) Points 1 Interpretation Negative Problems Problem Type SNOMED Code ICD Code Onset Dates Problem Status W/U Status Risk Notes Problem 068554946 Acute diverticulitis (K57.92) Active confirmed Problem 682331410 Diverticulitis (K57.92) Active confirmed Problem 9347687 Diverticulitis o f large intestine without perforation or abscess without bleeding (K57.32) Active confirmed Problem 549009912 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) Active confirmed Problem 949097145 Gastroesophageal reflux disease without esophagitis (K21.9) Active confirmed Problem 4692888 Psoriasis (L40.9) Active confirmed Problem 318851860 Low HDL (under 4 0) (E78.6) Active confirmed Problem 723360677 Colon cancer screening (Z12.11) Active confirmed Problem 6692431406287 Cervical neuropa thy (G54.2) Active confirmed Problem 2955058 Diverticulitis o f large intestine with perforation without bleeding (K57.20) Active confirmed Problem 138918283 Prediabetes (R73.03) Active confirmed Problem 7917560001851 Bilateral tinnit us (H93.13) Active confirmed Problem 372149730 Osteopenia of femoral neck (M85.859) Active confirmed Problem 83288985 Meralgia paresthetica of right side (G57.11) Active confirmed Problem 1816660512149402 Arthritis of ebonie th knees (M17.0) Active confirmed Vital Signs Blood pressure diastolic 60 mm Hg 10/01/2024 maribell ght is down 5 pounds since 09-19-24 Height 67 in 10/01/2024 weight is down 5 pounds since 09-19-24 Blood pressure systolic 122 mm Hg 10/01/2024 weig ht is down 5 pounds since 09-19-24 Weight 200 lbs 10/01/2024 weight is down 5 pounds since 09-19-24 BMI 31.32 kg/m2 10/01/2024 weight is down 5 pounds since 09-19-24 Encounters Encounter Location Date Provider Diagnosis Misbah Barnett MD [address] [place] [id number] 01/11/2024 Misbah Barnett Encounter for immunization Z23 Misbah Barnett MD [address] [place] [id number] 04/02/2024 Misbah Barnett Blood tests for rout ine general physical examination Z00.00 ; Prediabetes R73.03 and Low HDL (under 40) E78.6 Misbah Barnett MD [address] [place] [id number] 04/09/2024 Misbah Barnett Prediabetes R73.03 ; Annual physical exam Z00.00 ; Gastroesophageal reflux disease without esophagitis K21.9 ; Low HDL (under 40) E78.6 ; Colon cancer screening Z12.11 and Depression screening Z13.31 Misbah Barnett MD [address] [place] [id number] 07/19/2024 Misbah Barnett Cerumen impaction H61.20 Misbah Barnett MD [address] [place] [id number] 09/19/2024 Misbah Barnett Diverticulitis K57.9 2 and Knee pain M25.569 Misbah Barnett MD [address] [place] [address] [id number] 10/01/2024 Misbah Barnett Diverticulitis of la rge intestine with perforation without bleeding K57.20 Misbah Barnett MD [address] [id number] 09/06/2024 Misbah Barnett MD [address] [place] [id number] 09/09/2024 Misbah Barnett MD [address] [place] [id number] 09/26/2024 Misbah Barnett MD [address] [place] [address] [address] [id number] 09/27/2024 Misbah Barnett Assessments Encounter Date Diagnosis (ICD Code) Assessment Notes Treatment Notes Treatment Clinical Notes Section Notes 01/11/2024 Encounter for immunization (ICD-10 - Z23) 04/02/2024 Blood tests for routine general physical examination (ICD-10 - Z00.00) 04/02/2024 Prediabetes (ICD-10 - R73.03) 04/09/2024 Prediabetes (ICD-10 - R73.03) doing well. has good a1c, no need for medication at this time 04/09/2024 Annual physical exam (ICD-10 - Z00.00) labs reviewed and discussed with patient 07/19/2024 Cerumen impaction (ICD-10 - H61.20) 09/19/2024 Diverticulitis (ICD-10 - K57.92) patient verbalized understanding of medication and directions for use 09/19/2024 Knee pain (ICD-10 - M25.569) may have a torn meniscus/ reviewed the records from [facility] and he has had a gel injection and cortisone and is not helping. is in need of a replacement which he is not considering at present. hopefully this will improve with time 10/01/2024 Diverticulitis of large intestine with perforation without bleeding (ICD-10 - K57.20) has recovered completely with no pains 04/02/2024 Low HDL (under 40) (ICD-10 - E78.6) 04/09/2024 Gastroesophageal reflux disease without esophagitis (ICD-10 - K21.9) stable, will contiue current regiment 04/09/2024 Low HDL (under 40) (ICD-10 - E78.6) stable, will continue to monitor 04/09/2024 Colon cancer screening (ICD-10 - Z12.11) guaiac negative 04/09/2024 Depression screening (ICD-10 - Z13.31) negative screening 07/19/2024 Other ear lavage completed with good results Plan Of Treatment Pending Test Test Name Order Date US SOFT TISSUE 08/31/2023 Next Appt Details Provider Name:Misbah oRsales ier, 04/07/2025 07:15:00 AM, [address] [place] [address] Drive, [address], [place], [place], [phone], Provider Name:Misbah Rosales ier, 04/14/2025 10:30:00 AM, [address], [address], [place], [place], [phone], Insurance Providers Payer Name Payer Address Payer Phone Subscriber Number Group Number Insured Name Patient Relationship to Insured Coverage Start Date Coverage End Date [facility] [address] [place] [phone] [id number] Brenden Avery Self - patient is the insured 5 Medical (General) History Medical History History ICD Code hyperplastic polyp 2008 due in 10 years; colonoscopy done 06/01/[address] Reis due in 10 years needs bone density 2016 Endoscopy 02/19/[address] Reis Hx multilevel degenerative disc disease hematuria eval 2022 Surgical History Surgery Date(Month/Year) Rt Knee Partial Medial Menisectomy by by Dr. Isidro Tyler 08/2016
--- OUTSIDE RECORDS SUMMARY | 2024-11-08 11:12 | XMS_ITS | Patient Health Record ---
Author Organization [facility] Address [address] [place] [address] Care Team Providers Care Bus Mechanic Name Role Phone Misbah Barnett MD Primary Care Provider Hood Castorena Jr [phone] Allergies No Known Allergies Reason For Referral No Information Medications Medication SIG (Take, Route, Frequency, Duration) Notes Start Date End Date Status Multi Vitamin/Minerals - 1 Orally QD Active Omeprazole 20 MG 1-2 capsules Orally Once a day 02/27/2012 Active Aleve 220 MG 1 tablet as needed O rally every 12 hrs PRN Active Tylenol PRN Active Immunizations Vaccine Route Administration Date Status Comme nts Influenza Unknown 01/30/2018 Administered Influenza Unknown 01/08/2020 Administered Problems Problem Type SNOMED Code ICD Code Onset Dates Problem Status W/U Status Risk Notes Problem 310934230 Colon cancer screening (Z12.11) Active confirmed Problem 0835745 Diverticulitis o f large intestine without perforation or abscess without bleeding (K57.32) Active confirmed Problem Diverticular disease of colon (952007248) Diverticulosis (K57.90) Active confirmed Problem 120263000 Gastroesophageal reflux disease without esophagitis (K21.9) Active confirmed Plan Of Treatment Future Test Test Name Order Date UPPER GI ENDOSCOPY 11/12/2015 COLONOSCOPY 03/07/2018 Insurance Providers Payer Name Payer Address Payer Phone Subscriber Number Group Number Insured Name Patient Relationship to Insured Coverage Start Date Coverage End Date [employer] [address] [place] [address] [id number] [id number] Self - patient is the insured Medical (General) History Medical History History ICD Code colonoscopy 06/01/18, hyperpla stic polyp and mild sigmoid diverticulosis, ten-year followup 2028 Gastroesophageal reflux disease, EGD , no Ball's esophagus Diverticulitis with microper foration 07/17, second episode, uncomplicated, oral antibiotics 09/18 eczema Surgical History Surgery Date(Month/Year) lower disc surgery broken femur and hip knee surgery-right Meniscus left knee
--- OUTSIDE RECORDS SUMMARY | 2024-11-08 11:13 | XMS_ITS | Data Portability ---
Author Organization [facility] hern[facility] Address [address] [place] [address] Assessment No assessment recorded. Plan of Treatment Reminders Order Date Submit Date Provider Last Modified By Organization Details Last Modified Time Details Appointments None recorded. Lab rapid flu (A+B) 2021 [email or web address] 1 [facility], [address] [place] [address], [phone], 12:41:46 Referral None recorded. Procedures None recorded. Surgeries None recorded. Imaging None recorded. Medication Orders fluticasone propionate 50 mcg/actuati on nasal spray,suspe nsion 2021 [id number], [address], [place], [address], 12:41:47 Patient TargetsNo targets recorded. Patient Instructions Encounter Date Encounter Id Patient Instructions Last Modified By Organization Details Last Modified Time 04/21/2022 [id number] viral respirator y infection: care instructions [email or web address] Not available 04/21/2022 12:41:46 Reason for Referral None Reported. Results Created Date Observation Date Name Description Value Unit Range Abnormal Flag Note LastModifiedBy Organization Detail LastModifiedTime 04/21/2004/21/2022 rapid flu (A+B) Unknown Analyte Normal = Negati ve Not Available [facility] [address] [place] [address], [phone], 04/21/2022 11:55:30 04/21/2004/21/2022 rapid flu (A+B) Unknown Analyte Normal = Negati ve Not Available 2099[facility] [address] [place] [address], [phone], 04/21/2022 11:55:30 04/21/2004/21/2022 rapid flu (A+B) Unknown Analyte negati ve Not Available 20[address]christopher figueroa [address], [phone], 04/21/2022 11:55:30 04/21/2004/21/2022 rapid flu (A+B) Unknown Analyte negati ve Not Available 2099_christopher figueroa [address], [phone], 04/21/2022 11:55:30 Result Notes None recorded. Problems Name Problem SNOMED Code Status Onset Date Resolution Date Notes Provider Name and Address Organization Details Recorded Time Acid reflux 687074489 Active 022 YESSICA HERNANDEZVERTGUILLERMO roblero, [place] - [facility] 04/21/2022 11:48:36 Problem [...] propionate 50 mcg/actuatio n nasal spray,suspen obdulia Jasper 1 spray twice a day by intranasal route as directed. 2021 active Not Available Not Available Not Avai lable omeprazole active Not Available Not Av ailable Not Available Vitals Date Recorded Body height Body mass index (BMI) Body weight Body temperature Respiratory rate Heart rate Oxygen saturation Oxygen saturation in Arterial blood by Pulse oximetry Systolic And Diastolic Provider Name and Address Organization Details Last Updated DateTime 172.72 cm 33.5 kg/m2 06090.3 2 g 97.8 [degF] 18 /min 62 /min 99 % 99 % 143/91 mm[Hg] YESSICA Vasquez PA - [facility] 11:51:55 Social History Question Answer Notes LastModified by Organizat ion Details LastModified Time Tobacco Smoking Status Former Smoker YESSICA roblero PA - [facility] 04/21/2022 11:48:51 What Is Your Water Source? City Information not available 04/21/2022 What Is Your Heat Source? Gas Information not available 04/21/2022 Have You Had Direct Contact, Or Contact During Intimacy, With Monkeypox Rash, Scabs, Or Body Fluids From A Person With Monkeypox? No Information not available 04/21/2022 Have You Recently Traveled Abroad? No Information not available 04/21/2022 Sex: Unknown Functional Status Question Answer Note LastModified by Organizat ion Details LastModified Time Do you use any illicit or recreational drugs? No Information not available 04/21/2022 Do you or have you ever used any other forms of tobacco or nicotine? No Information not available 04/21/2022 What is your level of alcohol consumption? Occasional Information not available 04/21/2022 Mental Status None recorded. Family History Relationship [...] Diagnosis/Indication Diagnosis SNOMED-CT Code Diagnosis ICD10 Code Diagnosis Note [facility] [address] [place] [phone] 2017 18:49:06 2017 19:36:21 [address] [address] [place] [address] 07/23/2017 14:43:35 07/23/2017 15:22:27 [id number] [address] Milena Santamaria [address] [place] [address] 07/12/2018 17:35:53 07/12/2018 18:34:26 [id number] HINA FRANKLIN MD [address] [address] [place] [address] 04/21/2022 09:17:49 04/21/2022 12:42:58 Acute upper respiratory infection 20581922 J06.9 [facility] or see your primary care physician if your symptoms fail to improve in 5-7 days. You should follow up sooner if your symptoms worsen significan tly or if you develop new symptoms that concern you. Drink plenty of fluids If your symptoms worsen or persist you should be re-evaluat ed. If your symptoms are getting worse, or if you develop new symptoms that concern you, you should call 911 or go to the Emergency Department . Health Concerns Section Related Observation LastModified by Organization Detai ls LastModified Time None Recorded Concern Status LastModified by Organization Details LastModified Time None Recorded Advance Directives Directive None Recorded Payers Insurance Date Sequence Insurance Name Policy Number Policy Laura Covered Member ID Laura Member ID Guarantor Name 04/21/2022 1 [facility] - [facility] [id number] Zoey Avery [id number] Brenden Avery 07/01/2022 1 [facility] (PPO[facility] [id number] Zoey Avery [id number] Brenden Avery Notes Date Note Type Note Provider Name [...] possible sinus infection HINA FRANKLIN MD [address] [place], [address], [place] - [facility] 04/21/2022 12:43:18
--- OUTSIDE RECORDS SUMMARY | 2024-11-08 11:13 | XMS_ITS | Clinical Summary ---
Author Organization 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 Name Role Phone Michael Barnett MD Primary Care Provider [phone] Social History Tobacco Use Types Packs/Day Years Used Date Smoking Tobacco: Never Assessed Sex and Gender Information Value Date Recorded Sex Assigned at Male 04/01/2024 3:07 PM EST Legal Sex Male 2:28 PM EST Gender Identity Male 04/01/2024 3:07 PM EST Sexual Orientation Straight 04/01/2024 3: 07 PM EST Plan of Treatment Health Maintenance Due Date Last Done Comments Pneumococcal Vaccine: 50+ Years (2 of 2 - PCV) 02/23/2021 02/24/2020, 05/15/2013 COVID-19 Vaccine ( season) 2023 08/30/2021, 03/22/2021, 08/08/2020, Additional history exists Zoster Vaccines (2 of 2) 03/15/2024 01/19/2024 Abdominal Aortic Aneurysm (AAA) Screen 03/27/2024 Cholesterol Screening (Lipid Panel) 03/27/2024 Colorectal Cancer Screening: Colonoscopy 03/27/2024 Depression Screening 03/27/2024 Falls Risk Assessment 03/27/2024 Hepatitis C Screening 03/27/2024 Social Influencers of Health Screening 03/27/2024 Influenza Vaccine (#1) 2024 , 01/06/2023, 01/21/2022, Additional history exists RSV Immunization Adult Patients (1 - 1-dose 75+ series) 2032 DTaP,Tdap,and Td Vaccines (3 - Td or Tdap) 02/11/2034 02/12/2024, 12/29/2014 HIB Vaccines Aged Out No longer eligi ble based on patient's age to complete this topic HPV Vaccines Aged Out No longer eligi ble based on patient's age to complete this topic Hepatitis A Vaccines Aged Out No long er eligible based on patient's age to complete this topic Hepatitis B Vaccines Aged Out No long er eligible based on patient's age to complete this topic IPV Vaccines Aged Out No longer eligi ble based on patient's age to complete this topic MMR Vaccines Aged Out No longer eligi ble based on patient's age to complete this topic Meningococcal ACWY Vaccine Aged Out N o longer eligible based on patient's age to complete this topic Meningococcal B Vaccine Aged Out No l onger eligible based on patient's age to complete this topic RSV Immunization Patients Under 20 months Aged Out No longer eligible based on patient's age to complete this topic Varicella Vaccines Aged Out No longer eligible based on patient's age to complete this topic Insurance [place] [id number] Care Teams Animated Cartoons Painter Relationship Specialty Start Date End Date Michael Barnett MD [address] PCP - General Internal Medicine 04/01/24
== END 2024-11-08 10:58 | disposition home or self-care (01) ==
LOC: HO.HGS 10:37
PROVIDERS: PCP Internal Medicine; Visit Provider Surgery
DX: K57.90 Diverticulosis of intestine, part unspecified, without perforation or abscess without bleeding (principal)
CPT/HCPCS: 99213

== ENCOUNTER 2025-04-07 11:05 | Outpatient (REF) | payer OTHER, SELFPAY ==
[2025-04-07 11:09] LABS: MANUAL DIFF FLAG NO
[2025-04-07 11:26] LABS: Appearance Urine Clear; Glucose Urine UA Negative (Negative); PH 7.5 (5.0-9.0); Specific Gravity - Urine 1.020 (1.005-1.025)
[2025-04-07 11:29] LABS: Hematocrit 46.9 % (42.0-52.0); Hemoglobin 15.3 g/dl (14.0-18.0); Imm Gran Abs Auto 0.01 X10*3/uL (0.00-0.03); Imm Gran Pct Auto 0.2 % (0.0-0.4); Lymphocytes Absolute Auto 1.8 X10*3/uL (1.2-4.9); Mean Corpuscular HGB Conc 32.6 g/dl (31.0-36.0); Mean Corpuscular Hemoglobin 30.4 pg (27.0-33.0); Mean Corpuscular Volume 93.2 fL (80.0-98.0); NRBC Abs Auto 0.000 X10*3/uL (0.0-0.012); NRBC Pct Auto 0.0 /100WBC (0.0-0.2); Platelet Count 292 X10*3/uL (160-400); Red Blood Count 5.03 X10*6/uL (4.60-5.80); White Blood Count 6.1 X10*3/uL (4.8-10.8)
[2025-04-07 11:39] LABS: Alanine Aminotransferase 27 U/L (0-40); Albumin Level 4.3 g/dL (3.5-5.0); Alkaline Phosphatase 72 U/L (39-117); Anion Gap 13 (12-20); Aspartate Amino Transferase 27 U/L (5-37); Blood Urea Nitrogen 15 mg/dL (9-16); Calcium 9.2 mg/dL (8.4-10.2); Carbon Dioxide 27 mmol/L (22-29); Chloride 106 mmol/L (96-108); Cholesterol 212 mg/dL (<200); Estimated Glomerular Filt Rate > 60; HDL Cholesterol 43 mg/dL (>40); Potassium 3.9 mmol/L (3.3-5.1); Sodium 142 mmol/L (135-145); Total Protein 6.9 g/dL (6.5-8.0); Triglycerides 158 mg/dL (<150)
[2025-04-07 12:11] LABS: PSA,Total (Free>4and<10) 4.25 ng/mL (0.00-4.00)
[2025-04-07 12:14] LABS: Microalbum/Creatinine Ratio Ur 5.1 ug/mg cr (<30)
[2025-04-09 12:13] LABS: Free Prostate Spec Ag 0.6 ng/mL; Percent Free Prostate Spec Ag 15 % (calc) (>25)
== END 2025-04-07 11:06 | disposition home or self-care (01) ==
LOC: HO.LNP 11:05
PROVIDERS: Visit Provider Internal Medicine
DX: Z00.00 Encounter for general adult medical examination without abnormal findings (principal); E78.6 Lipoprotein deficiency; R73.03 Prediabetes; Z12.5 Encounter for screening for malignant neoplasm of prostate
CPT/HCPCS: 80053; 80061; 81001; 82043; 82570; 83036; 84153; 84154; 85025